=== PATIENT | male | born 1940 | race Caucasian/White ===

== ENCOUNTER 2018-01-30 14:24 | Emergency (ER) | payer OTHER ==
[2018-01-30] MEDS ORDERED: TETANUS & DIPHTHERIA TOX,ADULT 0.5 ML VIAL ONE (16:36)
--- NOTE | 2018-01-30 16:39 | EDPHYS ---
Physician Documentation [facility] Name: Taz Silverio Age: 77 yrs Sex: Male : 1940 Arrival Date: 01/30/2018 Time: 14:28 Bed 13 Private MD: Rui Williamson F ED Physician Jalen Masters HPI: 01/31 03:01 This 77 yrs old Male presents to ER via Ambulatory with complaints of Fall pm1 Injury - 2 Days Ago, Skin Tear(s). 03:02 Details of fall: The patient fell from a height, bed. Onset: The symptoms/episode pm1 began/occurred 2 day(s) ago. Associated injuries: The patient sustained Abrasion/skin tear to right arm. Severity of symptoms: in the emergency department the symptoms have improved. The patient has not experienced similar symptoms in the past. patient had a dream about catching giraffes and rolled off the bed resulting in abrasions to his right arm. No headache, head injury or neck pain. Patient presenting to ER for tetanus shot. Historical: - Allergies: 01/30 15:06 No Known Drug Allergies; aj - Home Meds: 15:06 Advair Diskus 250-50 mcg/dose Inhl dsdv 1 puff 2 times per day [Active]; albuterol aj sulfate 1.25 mg/3 mL Inhl nebu 3 mL 3 times per day [Active]; alprazolam 0.5 mg Oral tab 1 tab twice a day [Active]; amlodipine 2.5 mg tab 1 tab once daily [Active]; aspirin 81 mg Oral TbEC 1 tab once daily [Active]; Azilect 1 mg Oral tab 1 tab once daily [Active]; baclofen 10 mg Oral tab 1 tab nightly [Active]; carbidopa-levodopa 25-100 mg Oral TbER 1 tab 4 times per day [Active]; citalopram 40 mg tab 1 tab once daily [Active]; montelukast 10 mg Oral tab 1 tab once daily [Active]; mirtazapine 30 mg Oral TbDL 1 tab once daily [Active]; omeprazole 20 mg Oral cpDR 1 cap once daily [Active]; pravastatin 40 mg Oral tab 1 tab once daily [Active]; Vitamin B-12 2,000 mcg Oral TbER [Active]; tamsulosin 0.4 mg Oral cp24 1 cap once daily [Active]; - PMHx: 15:06 Hypertension; aj - PSHx: 15:06 None; aj - Immunization history: Last tetanus immunization: unknown. - Social history:: Smoking status: Patient/guardian denies using tobacco. ROS: 01/31 03:02 Constitutional: Negative for fever, chills, and weight loss, Eyes: Negative for injury, pm1 pain, redness, and discharge, ENT: Negative for injury, pain, and discharge, Neck: Negative for injury, pain, and swelling, Cardiovascular: Negative for chest pain, palpitations, and edema, Respiratory: Negative for shortness of breath, cough, wheezing, and pleuritic chest pain, Abdomen/GI: Negative for abdominal pain, nausea, vomiting, diarrhea, and constipation, Back: Negative for injury and pain, MS/Extremity: Negative for injury and deformity. Neuro: Negative for headache, weakness, numbness, tingling, and seizure. Skin: Positive for skin tear right arm. Exam: 03:04 Constitutional: This is a well developed, well nourished patient who is awake, alert, pm1 and in no acute distress. Head/Face: Normocephalic, atraumatic. Neck: Trachea midline, no thyromegaly or masses palpated, and no cervical lymphadenopathy. Supple, full range of motion without nuchal rigidity, or vertebral point tenderness. No Meningismus. Chest/axilla: Normal chest wall appearance and motion. Nontender with no deformity. No lesions are appreciated. Cardiovascular: Regular rate and rhythm with a normal S1 and S2. No gallops, murmurs, or rubs. Normal PMI, no JVD. No pulse deficits. Respiratory: Lungs have equal breath sounds bilaterally, clear to auscultation and percussion. No rales, rhonchi or wheezes noted. No increased work of breathing, no retractions or nasal flaring. Abdomen/GI: Soft, non-tender, with normal bowel sounds. No distension or tympany. No guarding or rebound. No evidence of tenderness throughout. Back: No spinal tenderness. No costovertebral tenderness. Full range of motion. 03:04 Skin: injury, abrasion(s), small abrasion noted, of the right bicep and palmar aspect of right forearm, Skin tear, Wounds without any sign of discharge, surrounding erythema, or redness. Vital Signs: 01/30 15:04 BP 131 / 82; Pulse 62; Resp 18; Temp 98.2; Pulse Ox 98% on R/A; Weight 89.81 kg; Height aj 5 ft. 11 in. (180.34 cm); 15:04 Body Mass Index 27.62 (89.81 kg, 180.34 cm) aj [place] Coma Score: 15:04 Eye Response: spontaneous(4). Verbal Response: oriented(5). Motor Response: obeys aj commands(6). Total: 15. Trauma Score (Adult): 15:04 Eye Response: spontaneous(1); Verbal Response: oriented(1); Motor Response: obeys aj commands(2); Systolic BP: > 89 mm Hg(4); Respiratory Rate: 10 to 29 per min(4); [place] Score: 15; Trauma Score: 12 MDM: 16:27 Patient medically screened. pm1 16:37 Data reviewed: vital signs. Data interpreted: Pulse oximetry: on room air is 98 %. pm1 Interpretation: normal. Counseling: I had a detailed discussion with the patient and/or guardian regarding: the historical points, exam findings, and any diagnostic results supporting the discharge/admit diagnosis, to return to the emergency department if symptoms worsen or persist or if there are any questions or concerns that arise at home. 01/30 16:37 Order name: Wound Care; Complete Time: 16:50 ae1 01/30 16:37 Order name: Wound dressing; Complete Time: 16:50 ae1 Administered Medications: 16:49 Drug: Tetanus-Diphtheria Toxoid Adult 0.5 ml {Program Director: [employer]. Exp: ae1 04/30/2020. Lot #: [id number]. } Route: IM; Site: left deltoid; Disposition: 01/30/18 16:38 Discharged to Home. Impression: Abrasion of right upper arm, Abrasion of right forearm. - Condition is Stable. - Discharge Instructions: Abrasion, Skin Tear Care. - Medication Reconciliation Form, Thank You Letter, Antibiotic Education form. - Follow up: Emergency Department; When: As needed; Reason: Worsening of condition. Follow up: Rui Williamson MD; When: 5 - 6 days; Reason: Wound Recheck, Recheck today's complaints, Continuance of care, Re-evaluation by your physician. - Problem is new. - Symptoms have improved. Addendum: 02/01/2018 13:27 Co-signature as Attending Physician, Jalen Masters MD. g s Signatures: Marilynn Syed, RN RN aj Rut Saha RN RN aa5 Jorgito Martinez, DRILLING ENGINEERING MANAGER DRILLING ENGINEERING MANAGER pm1 Get Duque, RN RN ae1 Jalen Masters MD MD Corrections: (The following items were deleted from the chart) 01/30 16:39 16:38 01/30/2018 16:38 Discharged to Home. Impression: Abrasion of right upper arm; pm1 Abrasion of right forearm. Condition is Stable. Forms are Medication Reconciliation Form, Thank You Letter, Antibiotic Education, Prescription Opioid Use. Follow up: Emergency Department; When: As needed; Reason: Worsening of condition. Follow up: [facility]; When: As needed; Reason: Wound Recheck, Recheck today's complaints, Continuance of care, Re-evaluation by your physician. Problem is new. Symptoms have improved. pm1 16:57 16:39 01/30/2018 16:38 Discharged to Home. Impression: Abrasion of right upper arm; aa5 Abrasion of right forearm. Condition is Stable. Discharge Instructions: Abrasion, Skin Tear Care. Forms are Medication Reconciliation Form, Thank You Letter, Antibiotic Education, Prescription Opioid Use. Follow up: Emergency Department; When: As needed; Reason: Worsening of condition. Follow up: [facility]; When: 5 - 6 days; Reason: Wound Recheck, Recheck today's complaints, Continuance of care, Re-evaluation by your physician. Problem is new. Symptoms have improved. pm1
--- NOTE | 2018-01-30 16:39 | ER ---
Nurse's Notes [facility] Name: Taz Silverio Age: 77 yrs Sex: Male : 1940 Arrival Date: 01/30/2018 Time: 14:28 Bed 13 Private MD: Rui Williamson F Diagnosis: Abrasion of right upper arm;Abrasion of right forearm Presentation: 01/30 15:01 Presenting complaint: Patient states: Reports rolling out of bed 2 nights ago while aj having a bad dream. Patient reports he suffered minor lacerations to right posterior forearm and posterior upper arm. Care prior to arrival: None. Mechanism of Injury: Fall out of bed. Trauma event details: Injury occurred in the [facility], Injury occurred: at home. Injury occurred: January 28, 2018. 15:01 Acuity: SUKHJINDER 4 aj 15:01 Method Of Arrival: Ambulatory Trauma Activation: Not Applicable Physician: ED Physician; Name: ; Notified At: ; Arrived At: Physician: General Surgeon; Name: ; Notified At: ; Arrived At: Physician: Radiology; Name: ; Notified At: ; Arrived At: Physician: Respiratory; Name: ; Notified At: ; Arrived At: Physician: Lab; Name: ; Notified At: ; Arrived At: Historical: - Allergies: 15:06 No Known Drug Allergies; aj - Home Meds: 15:06 Advair Diskus 250-50 mcg/dose Inhl dsdv 1 puff 2 times per day [Active]; albuterol aj sulfate 1.25 mg/3 mL Inhl nebu 3 mL 3 times per day [Active]; alprazolam 0.5 mg Oral tab 1 tab twice a day [Active]; amlodipine 2.5 mg tab 1 tab once daily [Active]; aspirin 81 mg Oral TbEC 1 tab once daily [Active]; Azilect 1 mg Oral tab 1 tab once daily [Active]; baclofen 10 mg Oral tab 1 tab nightly [Active]; carbidopa-levodopa 25-100 mg Oral TbER 1 tab 4 times per day [Active]; citalopram 40 mg tab 1 tab once daily [Active]; montelukast 10 mg Oral tab 1 tab once daily [Active]; mirtazapine 30 mg Oral TbDL 1 tab once daily [Active]; omeprazole 20 mg Oral cpDR 1 cap once daily [Active]; pravastatin 40 mg Oral tab 1 tab once daily [Active]; Vitamin B-12 2,000 mcg Oral TbER [Active]; tamsulosin 0.4 mg Oral cp24 1 cap once daily [Active]; - PMHx: 15:06 Hypertension; aj - PSHx: 15:06 None; aj - Immunization history: Last tetanus immunization: unknown. - Social history:: Smoking status: Patient/guardian denies using tobacco. Primary Survey: 15:01 A: Airway: patent. Breathing/Chest: Respiratory pattern: regular, Respiratory effort: aj spontaneous, unlabored. Circulation: Skin color: pink. Disability Alert. Assessment: 15:01 General: Appears in no apparent distress. comfortable, Behavior is calm, cooperative, aj appropriate for age. Pain: Complains of pain in right tricep and palmar aspect of right forearm. Neuro: Level of Consciousness is awake, alert, obeys commands, Oriented to person, place, time, situation, Appropriate for age. Respiratory: Airway is patent Respiratory effort is even, unlabored, Respiratory pattern is regular, symmetrical. Derm: Skin is intact, is healthy with good turgor, Skin is pink, warm \T\ dry. normal. Injury Description: Abrasion sustained to right bicep and palmar aspect of right forearm. 16:56 Reassessment: Patient is alert, oriented x 3, equal unlabored respirations, skin aa5 warm/dry/pink. Vital Signs: 15:04 BP 131 / 82; Pulse 62; Resp 18; Temp 98.2; Pulse Ox 98% on R/A; Weight 89.81 kg; Height aj 5 ft. 11 in. (180.34 cm); 15:04 Body Mass Index 27.62 (89.81 kg, 180.34 cm) aj [place] Coma Score: 15:04 Eye Response: spontaneous(4). Verbal Response: oriented(5). Motor Response: obeys commands(6). Total: 15. Trauma Score (Adult): 15:04 Eye Response: spontaneous(1); Verbal Response: oriented(1); Motor Response: obeys commands(2); Systolic BP: > 89 mm Hg(4); Respiratory Rate: 10 to 29 per min(4); [place] Score: 15; Trauma Score: 12 ED Course: 14:28 Patient arrived in ED. as 14:29 Rui Williamson MD is Private Physician. as 15:03 Triage completed. aj 15:06 Arm band placed on left wrist. Patient placed in waiting room, Patient notified of wait aj time. 16:26 Jorgito Martinez NP is PHCP. pm1 16:26 Jalen Masters MD is Attending Physician. pm1 16:27 Get Duque, RN is Primary Nurse. ae1 16:37 uRi Williamson MD is Referral Physician. pm1 Administered Medications: 16:49 Drug: Tetanus-Diphtheria Toxoid Adult 0.5 ml {[employer] Operator: [employer]. Exp: ae1 04/30/2020. Lot #: [id number]. } Route: IM; Site: left deltoid; Outcome: 16:38 Discharge ordered by . pm1 16:56 Discharged to home ambulatory, with significant other. aa5 16:56 Condition: stable 16:56 Discharge instructions given to patient, significant other, Instructed on discharge instructions, follow up and referral plans. Demonstrated understanding of instructions, follow-up care. 16:57 Patient left the ED. aa5 Signatures: Marilynn Syed, RN RN Fawn Solis Audri, RN RN aa5 Jorgito Martinez, LORA HAND STRAIGHTENER pm1 Get Duque, RN RN ae1
[2018-01-30 17:01] VITALS: BP 131/82; TEMP 98.2; O2SAT 98
== END 2018-01-30 16:57 | disposition home or self-care (01) ==
LOC: ER 14:24
DX: S50.811A Abrasion of right forearm, initial encounter (principal); I10 Essential (primary) hypertension; W06.XXXA Fall from bed, initial encounter; Y93.9 Activity, unspecified; Y92.003 Bedroom of unspecified non-institutional (private) residence as the place of occurrence of the external cause; Z23 Encounter for immunization; Z79.82 Long term (current) use of aspirin
CPT/HCPCS: 90714; 99283

== ENCOUNTER 2018-06-04 10:09 | Emergency (ER) | payer OTHER ==
[2018-06-04 11:30] LABS: Absolute Lymphocytes (CBC) 0.8 K/uL (0.7-4.9); Absolute Monocytes 0.5 K/uL (0.1-1.3); Absolute Neutrophil 9.5 K/uL (1.8-8.0); Basophils % 0.7 % (0-1.3); Eosinophils % 0.2 % (0-4.4); Hematocrit 43.2 % (39.6-49.0); Lymphocytes % 7.5 % (15.3-44.8); MCH 31.6 pg (27.0-35.0); MCV 91.2 fL (80-100); MPV 9.1 fL (7.6-11.3); Monocytes % 4.7 % (3.3-12.3); RBC Red Blood Cell Count 4.73 M/uL (4.33-5.43)
[2018-06-04 11:46] LABS: Potassium 3.4 mmol/L (3.5-5.1)
[2018-06-04 11:56] LABS: Blood Morphology Comment NOT SEEN (NOT SEEN); Platelet Estimate ADEQ; Urine White Blood Cell Casts OK
[2018-06-04 12:15] LABS: Urine Blood NEGATIVE (NEG); Urine Glucose NEGATIVE (NEG); Urine Protein NEGATIVE (NEG); Urine Specific Gravity 1.015 (1.005-1.030); Urine pH 5.5 (5.0-7.0)
--- NOTE | 2018-06-04 12:44 | RAD REPORT ---
EXAM DESCRIPTION: CTAbdomen Pelvis W Contrast - 06/04/2018 12:31 pm CLINICAL HISTORY: Abdominal pain. iv only;Abd pain COMPARISON: No comparisons TECHNIQUE: Biphasic CT imaging of the abdomen and pelvis was performed with 100 ml non-ionic IV cont rast. All CT scans are performed using dose optimization technique as appropriate and may include automated exposure control or mA/KV adjustment according to patient size. FINDINGS: Mild linear subsegmental atelectasis is present in the right lung base. The liver demonstrates no focal mass or intrahepatic biliary dilatation. The spleen, pancreas, adrena l glands are within normal limits. The left kidney demonstrates no hydronephrosis. There is moderate right hydronephrosis and hydroureter seen. The bladder is quite distended and there is moderate prostatomegaly. The wall of the bladder is irregularly thickened. No bowel obstruction, free air, free fluid or abscess. Large amount of stool is present in the colon. The appendix is normal. Small fat containing umbilical hernia. No evidence of significant lymphadeno tina. Moderate lumbosacral degenerative changes. IMPRESSION: Marked bladder distention is present with moderate right hydroureter and hydronephrosis. A bladder outlet obstruction is possible with reflux present on the right. A clear etiology for the right-sided hydronephrosis is not seen, however, and followup cystoscopy may be of value to better vi sualize the right UVJ as well as the areas of irregular bladder wall thickening. Moderate fecal retention in the colon.
[2018-06-04] MEDS ORDERED: MAGNESIUM CITRATE 300 ML BOT ONE (13:37)
[2018-06-04] MEDS ORDERED: FLEET ENEMA ADULT PR ONE (15:17)
--- NOTE | 2018-06-04 15:17 | ER ---
Nurse's Notes [facility] Name: Taz Silverio Age: 77 yrs Sex: Male : 1940 Arrival Date: 06/04/2018 Time: 10:13 Bed 14 Private MD: Rui Williamson F Diagnosis: Constipation;Retention of urine;Enlarged prostate Presentation: 06/04 10:20 Presenting complaint: Patient states: constipation. Pt reports last BM was 5 days ago. aa5 Pt states "I took Dulcolax yesterday". Pt denies Nausea, denies vomiting. Reports lower abd pain. 10:20 Transition of care: patient was not received from another setting of care. Onset of aa5 symptoms was June 2018. Risk Assessment: Do you want to hurt yourself or someone else? Patient reports no desire to harm self or others. Initial Sepsis Screen: Does the patient meet any 2 criteria? No. Patient's initial sepsis screen is negative. Does the patient have a suspected source of infection? No. Patient's initial sepsis screen is negative. Care prior to arrival: None. 10:20 Method Of Arrival: Ambulatory aa5 10:20 Acuity: SUKHJINDER 3 aa5 Historical: - Allergies: 10:22 No Known Allergies; aa5 - PMHx: 10:22 Hypertension; Asthma; Parkinsons; aa5 - PSHx: 10:22 None; aa5 - Immunization history:: Adult Immunizations up to date, Pneumococcal vaccine is up to date, Flu vaccine is up to date. - Social history:: Smoking status: Patient/guardian denies using tobacco. - Ebola Screening: : No symptoms or risks identified at this time. Screenin:00 Abuse screen: Denies threats or abuse. Denies injuries from another. Nutritional jl7 screening: No deficits noted. Tuberculosis screening: No symptoms or risk factors identified. Fall Risk IV access (20 points). Total [place] Fall Scale indicates No Risk (0-24 pts). Assessment: 11:00 General: Appears in no apparent distress. uncomfortable, Behavior is calm, cooperative, jl7 appropriate for age. Pain: Complains of pain in abdomen. Neuro: Level of Consciousness is awake, alert, obeys commands, Oriented to person, place, time, situation. Cardiovascular: Patient's skin is warm and dry. Respiratory: Airway is patent Respiratory effort is even, unlabored, Respiratory pattern is regular, symmetrical. GI: Bowel sounds present X 4 quads. Pt's abdomen is mildly harder on the left side of abdomen. : Reports inability to void. EENT: No signs and/or symptoms were reported regarding the EENT system. Derm: Skin is pink, warm \\T\\ dry. Musculoskeletal: No signs and/or symptoms reported regarding the musculoskeletal system. 12:00 Reassessment: Patient appears in no apparent distress at this time. Patient and/or jl7 family updated on plan of care and expected duration. Pain level reassessed. Patient is alert, oriented x 3, equal unlabored respirations, skin warm/dry/pink. 13:30 Reassessment: Drained 2000 mL from straight cath. jl7 Vital Signs: 10:22 BP 120 / 80; Pulse 89; Resp 18 S; Temp 98.1(O); Pulse Ox 95% on R/A; Weight 87.54 kg aa5 (R); Height 5 ft. 11 in. (180.34 cm) (R); 11:33 BP 132 / 86; Pulse 69; Resp 16; Pulse Ox 95% on R/A; jl7 12:42 BP 111 / 70; Pulse 78; Resp 16 S; Pulse Ox 96% on R/A; jl7 14:00 BP 145 / 73; Pulse 70; Resp 16 S; Pulse Ox 94% on R/A; jl7 15:45 BP 140 / 75; Pulse 75; Resp 16 S; Pulse Ox 95% on R/A; jl7 10:22 Body Mass Index 26.92 (87.54 kg, 180.34 cm) aa5 ED Course: 10:13 Patient arrived in ED. mr 10:13 Rui Williamson MD is Private Physician. mr 10:20 Arm band placed on Patient placed in an exam room, on a stretcher. aa5 10:23 Charles Subramanian PA is PHCP. jr8 10:23 Cali Abbott MD is Attending Physician. jr8 10:26 Triage completed. aa5 10:34 Ebonie Hill RN is Primary Nurse. jl7 11:00 Patient has correct armband on for positive identification. Bed in low position. Call jl7 light in reach. Side rails up X 1. Pulse ox on. NIBP on. Warm blanket given. Pillow given. 11:00 Inserted saline lock: 20 gauge in right antecubital area, using aseptic technique. jl7 Blood collected. 12:[address] via wheelchair. jg6 12:31 CT Abd/Pelvis - W/Contrast In Process Unspecified. EDMS 13:28 Straight cath inserted, using sterile technique, 16 Fr. Returned oliver urine. Patient jl7 tolerated poorly. 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 Assisted DORON Anderson [facility] WELDER/INSTALLER Student with jl7 digital disimpaction. 15:16 Rui Williamson MD is Referral Physician. jr8 15:16 Stacey Lyn MD is Referral Physician. jr8 15:35 Assisted to bedside commode. jl7 15:48 IV discontinued, intact, bleeding controlled, No redness/swelling at site. Pressure jl7 dressing applied. Administered Medications: 13:35 Drug: Magnesium Citrate Liquid 300 ml Route: PO; jl7 15:28 Follow up: Response: No adverse reaction jl7 15:10 Drug: Fleet Enema 133 ml Route: AL; jl7 15:29 Follow up: Response: No adverse reaction jl7 Output: 13:00 Urine: 2000ml (Straight Cath); Total: 2000ml. jl7 Outcome: 15:16 Discharge ordered by MD. jr8 15:48 Discharged to home ambulatory, with family. jl7 15:48 Condition: stable 15:48 Discharge instructions given to patient, family, Instructed on discharge instructions, follow up and referral plans. medication usage, Demonstrated understanding of instructions, follow-up care, medications, Prescriptions given X 2. 15:55 Patient left the ED. jl7 Signatures: Dispatcher [employer] EDNY Jared Nemo SahaRut, RN RN aa5 Charles Subramanian PA PA jr8 Ebonie Hill RN RN jl7 Elina Blount jg6 Corrections: (The following items were deleted from the chart) 15:33 14:45 Served as a milling supervisor during rectal exam. jl7 jl7
--- NOTE | 2018-06-04 15:17 | EDPHYS ---
Physician Documentation [facility] Name: Taz Silverio Age: 77 yrs Sex: Male : 1940 Arrival Date: 06/04/2018 Time: 10:13 Bed 14 Private MD: Rui Williamson F ED Physician Cali Abbott HPI: 06/04 11:27 This 77 yrs old Male presents to ER via Ambulatory with complaints of jr8 Constipation. 11:27 The patient presents with abdominal pain in the lower abdomen. Onset: The jr8 symptoms/episode began/occurred gradually, 1 week(s) ago. The symptoms do not radiate. Associated signs and symptoms: Pertinent positives: constipation. The symptoms are described as crampy, dull. Modifying factors: The symptoms are alleviated by nothing, the symptoms are aggravated by nothing. Severity of pain: At its worst the pain was mild in the emergency department the pain is unchanged. The patient has not experienced similar symptoms in the past. The patient has not recently seen a physician. constipated for past week. Has tried OTC medication without relief . Historical: - Allergies: 10:22 No Known Allergies; aa5 - PMHx: 10:22 Hypertension; Asthma; Parkinsons; aa5 - PSHx: 10:22 None; aa5 - Immunization history:: Adult Immunizations up to date, Pneumococcal vaccine is up to date, Flu vaccine is up to date. - Social history:: Smoking status: Patient/guardian denies using tobacco. - Ebola Screening: : No symptoms or risks identified at this time. ROS: 11:27 Eyes: Negative for injury, pain, redness, and discharge, ENT: Negative for injury, jr8 pain, and discharge, Neck: Negative for injury, pain, and swelling, Cardiovascular: Negative for chest pain, palpitations, and edema, Respiratory: Negative for shortness of breath, cough, wheezing, and pleuritic chest pain, Back: Negative for injury and pain, MS/Extremity: Negative for injury and deformity, Skin: Negative for injury, rash, and discoloration, Neuro: Negative for headache, weakness, numbness, tingling, and seizure. 11:27 Abdomen/GI: Positive for abdominal pain, constipation, abdominal cramps, Negative for nausea, vomiting, and diarrhea, abdominal distension, anorexia, dysphagia, hematemesis, black/tarry stool, rectal pain, rectal bleeding, bowel incontinence, flatulence. Exam: 11:28 Eyes: Pupils equal round and reactive to light, extra-ocular motions intact. Lids and jr8 lashes normal. Conjunctiva and sclera are non-icteric and not injected. Cornea within normal limits. Periorbital areas with no swelling, redness, or edema. ENT: Nares patent. No nasal discharge, no septal abnormalities noted. Tympanic membranes are normal and external auditory canals are clear. Oropharynx with no redness, swelling, or masses, exudates, or evidence of obstruction, uvula midline. Mucous membranes moist. Neck: Trachea midline, no thyromegaly or masses palpated, and no cervical lymphadenopathy. Supple, full range of motion without nuchal rigidity, or vertebral point tenderness. No Meningismus. Cardiovascular: Regular rate and rhythm with a normal S1 and S2. No gallops, murmurs, or rubs. Normal PMI, no JVD. No pulse deficits. Respiratory: Lungs have equal breath sounds bilaterally, clear to auscultation and percussion. No rales, rhonchi or wheezes noted. No increased work of breathing, no retractions or nasal flaring. Back: No spinal tenderness. No costovertebral tenderness. Full range of motion. Skin: Warm, dry with normal turgor. Normal color with no rashes, no lesions, and no evidence of cellulitis. MS/ Extremity: Pulses equal, no cyanosis. Neurovascular intact. Full, normal range of motion. Neuro: Awake and alert, GCS 15, oriented to person, place, time, and situation. Cranial nerves II-XII grossly intact. Motor strength 5/5 in all extremities. Sensory grossly intact. Cerebellar exam normal. Normal gait. 11:28 Abdomen/GI: Inspection: abdomen appears normal, Bowel sounds: active, all quadrants, Palpation: mild abdominal tenderness, in the right lower quadrant and left lower quadrant, mass, is not appreciated, rebound tenderness, is not appreciated, no appreciated organomegaly, firm feeling in lower abdomen , Indicators: McBurney's point is not tender, Miguel's sign is negative, Rovsing's sign is negative, Liver: no appreciated palpable abnormalities, tenderness, is not appreciated. Vital Signs: 10:22 BP 120 / 80; Pulse 89; Resp 18 S; Temp 98.1(O); Pulse Ox 95% on R/A; Weight 87.54 kg aa5 (R); Height 5 ft. 11 in. (180.34 cm) (R); 11:33 BP 132 / 86; Pulse 69; Resp 16; Pulse Ox 95% on R/A; jl7 12:42 BP 111 / 70; Pulse 78; Resp 16 S; Pulse Ox 96% on R/A; jl7 14:00 BP 145 / 73; Pulse 70; Resp 16 S; Pulse Ox 94% on R/A; jl7 15:45 BP 140 / 75; Pulse 75; Resp 16 S; Pulse Ox 95% on R/A; jl7 10:22 Body Mass Index 26.92 (87.54 kg, 180.34 cm) aa5 Procedures: 15:12 Fecal disimpaction: digital disimpaction was performed, with a moderate amount of stool jr8 expressed. The patient tolerated the intervention well. MDM: 10:23 Patient medically screened. jr8 15:12 Data reviewed: vital signs, nurses notes, lab test result(s), radiologic studies, CT jr8 scan, and as a result, I will discharge patient. Data interpreted: Pulse oximetry: on room air is 94 %. Interpretation: normal. Counseling: I had a detailed discussion with the patient and/or guardian regarding: the historical points, exam findings, and any diagnostic results supporting the discharge/admit diagnosis, lab results, radiology results, the need for outpatient follow up, a family practitioner, to return to the emergency department if symptoms worsen or persist or if there are any questions or concerns that arise at home. 15:12 ED course: Evacuated as much stool as possible. Enema given and will be sent home on jr8 medication to help with the constipation. Will need to f/u in a few days. If worse or cannot go to come back or f/u with GI. Straight cathed 2000 ml total of urine out to decompress him. Likely prostomegaly that needs to be further evaluated by urology at this point. Patient still able to urinate so does not require Mcgill yet . 06/04 10:46 Order name: Basic Metabolic Panel; Complete Time: 11:47 jr8 06/04 10:46 Order name: CBC with Diff; Complete Time: 12:12 jr8 06/04 11:20 Order name: Urine Dipstick--Ancillary (enter results); Complete Time: 12:18 eb 06/04 11:48 Order name: CT Abd/Pelvis - W/Contrast; Complete Time: 12:55 [facility] 06/04 11:56 Order name: CBC Smear Scan; Complete Time: 12:12 [facility] 06/04 10:44 Order name: Urine Dipstick-Ancillary (obtain specimen); Complete Time: 11:18 [facility] 06/04 10:46 Order name: IV Saline Lock; Complete Time: 11:18 [facility] 06/04 10:46 Order name: Labs collected and sent; Complete Time: :18 [facility] 06/04 13:02 Order name: Straight Cath - Urine; Complete Time: 13:28 jr8 Administered Medications: 13:35 Drug: Magnesium Citrate Liquid 300 ml Route: PO; jl7 15:28 Follow up: Response: No adverse reaction jl7 15:10 Drug: Fleet Enema 133 ml Route: MT; jl7 15:29 Follow up: Response: No adverse reaction jl7 Disposition: 17:52 Co-signature as Attending Physician, Cali Abbott MD. rn Disposition: 06/04/18 15:16 Discharged to Home. Impression: Constipation, Retention of urine, Enlarged prostate. - Condition is Stable. - Discharge Instructions: Constipation, Adult. - Prescriptions for Lactulose 10 gram/15 mL Oral Solution - take 30 milliliters by ORAL route 2 times per day for 2 days; 140 milliliter. Miralax 17 gram/dose Oral - take 1 packet by ORAL route once daily dilute powder in 8 ounces of water or juice; 1 box. - Medication Reconciliation Form, Thank You Letter, Antibiotic Education, Prescription Opioid Use form. - Follow up: Rui Williamson MD; When: 2 - 3 days; Reason: Recheck today's complaints, Continuance of care, Re-evaluation by your physician. Follow up: Stacey Lyn MD; When: 2 - 3 days; Reason: Recheck today's complaints, Continuance of care, Re-evaluation by your physician. - Problem is new. - Symptoms have improved. Signatures: Dispatcher [employer] EDID Cali Abbott MD MD rn Calderon, Audri RN RN aa5 Charles Subramanian PA PA jr8 Ebonie Hill RN RN jl7 Corrections: (The following items were deleted from the chart) 10:58 10:34 Abdomen 1 View (KUB)+RAD.RAD.BRZ ordered. EDMS EDMS 15:55 15:16 06/04/2018 15:16 Discharged to Home. Impression: Constipation; Retention of jl7 urine; Enlarged prostate. Condition is Stable. Forms are Medication Reconciliation Form, Thank You Letter, Antibiotic Education, Prescription Opioid Use. Follow up: Rui Williamson; When: 2 - 3 days; Reason: Recheck today's complaints, Continuance of care, Re-evaluation by your physician. Follow up: Stacey Lyn; When: 2 - 3 days; Reason: Recheck today's complaints, Continuance of care, Re-evaluation by your physician. Problem is new. Symptoms have improved. jr8
[2018-06-04 16:00] VITALS: TEMP 98.1
[2018-06-04 16:05] VITALS: BP 140/75; O2SAT 95
== END 2018-06-04 15:55 | disposition home or self-care (01) ==
LOC: ER 10:09
DX: N40.0 Benign prostatic hyperplasia without lower urinary tract symptoms (principal); R33.9 Retention of urine, unspecified
CPT/HCPCS: 36415; 51702; 74177; 80048; 81003; 85025; 99285; Q9967

== ENCOUNTER 2018-06-14 21:44 | Emergency (ER) | payer OTHER ==
[2018-06-14] MEDS ORDERED: DERMABOND SKIN ADHESIVE TOP ONE ×2 (22:45→23:17)
--- NOTE | 2018-06-14 23:25 | EDPHYS ---
Physician Documentation [facility] Name: Taz Silverio Age: 77 yrs Sex: Male : 1940 Arrival Date: 06/14/2018 Time: 21:45 Bed 15 Private MD: Rui Williamson F ED Physician Jalen Masters HPI: 06/14 23:00 This 77 yrs old Male presents to ER via Ambulatory with complaints of Fall pm1 Injury. 23:00 Details of fall: The patient fell from an upright position, while walking. Onset: The pm1 symptoms/episode began/occurred just prior to arrival. Associated injuries: The patient sustained dorsal aspect of right forearm, skin tear. Patient was walking next to his and tripped. Patient with history of Parkinson's. Patient believes that he cut his right arm on his walker. Historical: - Allergies: 22:10 No Known Allergies; cc3 - Home Meds: 22:10 Advair Diskus 250-50 mcg/dose Inhl dsdv 1 puff 2 times per day [Active]; albuterol cc3 sulfate 1.25 mg/3 mL Inhl nebu 3 mL 3 times per day [Active]; alprazolam 0.5 mg Oral tab 1 tab twice a day [Active]; amlodipine 2.5 mg tab 1 tab once daily [Active]; aspirin 81 mg Oral TbEC 1 tab once daily [Active]; Azilect 1 mg Oral tab 1 tab once daily [Active]; baclofen 10 mg Oral tab 1 tab nightly [Active]; carbidopa-levodopa 25-100 mg Oral TbER 1 tab 4 times per day [Active]; citalopram 40 mg tab 1 tab once daily [Active]; mirtazapine 30 mg Oral TbDL 1 tab once daily [Active]; montelukast 10 mg Oral tab 1 tab once daily [Active]; omeprazole 20 mg Oral cpDR 1 cap once daily [Active]; pravastatin 40 mg Oral tab 1 tab once daily [Active]; tamsulosin 0.4 mg Oral cp24 1 cap once daily [Active]; Vitamin B-12 2,000 mcg Oral TbER [Active]; - PMHx: 22:10 Asthma; Hypertension; Parkinsons; cc3 - Immunization history:: Adult Immunizations up to date. - Social history:: Smoking status: Patient/guardian denies using tobacco, never smoked. - Ebola Screening: : No symptoms or risks identified at this time. ROS: 23:00 Constitutional: Negative for fever, chills, and weight loss, Eyes: Negative for injury, pm1 pain, redness, and discharge, ENT: Negative for injury, pain, and discharge, Neck: Negative for injury, pain, and swelling, Cardiovascular: Negative for chest pain, palpitations, and edema, Respiratory: Negative for shortness of breath, cough, wheezing, and pleuritic chest pain, Abdomen/GI: Negative for abdominal pain, nausea, vomiting, diarrhea, and constipation, Back: Negative for injury and pain, : Negative for injury, bleeding, discharge, and swelling, MS/Extremity: Negative for injury and deformity. 23:00 Neuro: Negative for headache, weakness, numbness, tingling, and seizure. 23:00 Skin: Positive for laceration(s), of the dorsal aspect of right forearm. Exam: 23:00 Constitutional: This is a well developed, well nourished patient who is awake, alert, pm1 and in no acute distress. Head/Face: Normocephalic, atraumatic. Eyes: Pupils equal round and reactive to light, extra-ocular motions intact. Lids and lashes normal. Conjunctiva and sclera are non-icteric and not injected. Cornea within normal limits. Periorbital areas with no swelling, redness, or edema. ENT: Nares patent. No nasal discharge, no septal abnormalities noted. Tympanic membranes are normal and external auditory canals are clear. Oropharynx with no redness, swelling, or masses, exudates, or evidence of obstruction, uvula midline. Mucous membranes moist. Neck: Trachea midline, no thyromegaly or masses palpated, and no cervical lymphadenopathy. Supple, full range of motion without nuchal rigidity, or vertebral point tenderness. No Meningismus. Chest/axilla: Normal chest wall appearance and motion. Nontender with no deformity. No lesions are appreciated. Cardiovascular: Regular rate and rhythm with a normal S1 and S2. No gallops, murmurs, or rubs. Normal PMI, no JVD. No pulse deficits. Respiratory: Lungs have equal breath sounds bilaterally, clear to auscultation and percussion. No rales, rhonchi or wheezes noted. No increased work of breathing, no retractions or nasal flaring. Abdomen/GI: Soft, non-tender, with normal bowel sounds. No distension or tympany. No guarding or rebound. No evidence of tenderness throughout. Back: No spinal tenderness. No costovertebral tenderness. Full range of motion. 23:00 Skin: Appearance: normal except for affected area, injury, skin tear to right forearm. 23:00 Neuro: Orientation: is normal, Mentation: is normal, Motor: moves all fours, Sensation: is normal, no obvious gross deficits. Vital Signs: 22:10 BP 133 / 70; Pulse 45; Resp 17 S; Temp 98.9(O); Pulse Ox 95% on R/A; Weight 78.47 kg; cc3 Height 5 ft. 11 in. (180.34 cm); 23:20 BP 134 / 72; Pulse 52; Resp 17 S; Pulse Ox 96% on R/A; cc3 22:10 Body Mass Index 24.13 (78.47 kg, 180.34 cm) cc3 Laceration: 23:22 Wound Repair of 7cm ( 2.8in ) subcutaneous laceration to dorsal aspect of right pm1 forearm. Irregularly shaped.. skin tear. Distal neuro/vascular/tendon intact. Wound prep: Extensive cleansing with hibiclenz by me, Wound irrigation with saline by me, Wound explored, Copious irrigation. Skin closed with 1-0 Adhesive skin closure using Dermabond. Dressed with 4x4's. Patient tolerated well. MDM: 22:15 Patient medically screened. pm1 23:22 Data reviewed: vital signs. Data interpreted: Pulse oximetry: on room air is 95 %. pm1 Interpretation: normal. Counseling: I had a detailed discussion with the patient and/or guardian regarding: the historical points, exam findings, and any diagnostic results supporting the discharge/admit diagnosis, the need for outpatient follow up, to return to the emergency department if symptoms worsen or persist or if there are any questions or concerns that arise at home. 06/14 22:20 Order name: Dermabond; Complete Time: 00:04 pm1 06/14 22:39 Order name: Wound Care; Complete Time: 00:04 pm1 Administered Medications: No medications were administered Disposition: 06/15 23:40 Co-signature as Attending Physician, Jalen Masters MD. Disposition: 06/14/18 23:25 Discharged to Home. Impression: Laceration without foreign body of right forearm - skin tear. - Condition is Stable. - Discharge Instructions: Tissue Adhesive Wound Care. - Prescriptions for Keflex 500 mg Oral Capsule - take 1 capsule by ORAL route every 12 hours for 10 days; 20 capsule. - Medication Reconciliation Form, Thank You Letter, Antibiotic Education form. - Follow up: Emergency Department; When: As needed; Reason: Worsening of condition. Follow up: Private Physician; When: As needed; Reason: Recheck today's complaints, Continuance of care, Re-evaluation by your physician. - Problem is new. - Symptoms have improved. Signatures: Jorgito Martinez, [employer] pm1 Jalen Masters MD MD Ginna Braden cc3 Corrections: (The following items were deleted from the chart) 00:04 06/14 23:25 06/14/2018 23:25 Discharged to Home. Impression: Laceration without foreign cc3 body of right forearm - skin tear. Condition is Stable. Forms are Medication Reconciliation Form, Thank You Letter, Antibiotic Education, Prescription Opioid Use. Follow up: Emergency Department; When: As needed; Reason: Worsening of condition. Follow up: Private Physician; When: As needed; Reason: Recheck today's complaints, Continuance of care, Re-evaluation by your physician. Problem is new. Symptoms have improved. pm1
--- NOTE | 2018-06-14 23:25 | ER ---
Nurse's Notes [facility] Name: Taz Silverio Age: 77 yrs Sex: Male : 1940 Arrival Date: 06/14/2018 Time: 21:45 Bed 15 Private MD: Rui Williamson F Diagnosis: Laceration without foreign body of right forearm-skin tear Presentation: 06/14 22:10 Presenting complaint: Patient states: lacerated wound on the right forearm sustained cc3 from slipped in the kitchen then hit his right forearm on a hard object. Transition of care: patient was not received from another setting of care. Onset of symptoms was June 14, 2018. Risk Assessment: Do you want to hurt yourself or someone else? Patient reports no desire to harm self or others. Initial Sepsis Screen: Does the patient meet any 2 criteria? No. Patient's initial sepsis screen is negative. Initial Sepsis Screen: Does the patient have a suspected source of infection? No. Patient's initial sepsis screen is negative. Care prior to arrival: None. 22:10 Method Of Arrival: Ambulatory cc3 22:10 Acuity: SUKHJINDER 3 cc3 Triage Assessment: 22:10 General: Appears in no apparent distress. comfortable, Behavior is calm, cooperative, cc3 appropriate for age. Pain: Complains of pain in dorsal aspect of right forearm. EENT: No signs and/or symptoms were reported regarding the EENT system. Neuro: Level of Consciousness is awake, alert, obeys commands, Oriented to person, place, time, situation, Appropriate for age. Cardiovascular: Denies chest pain. Respiratory: Airway is patent Respiratory effort is even, unlabored, Respiratory pattern is regular, symmetrical. GI: Abdomen is round non-distended. : No signs and/or symptoms were reported regarding the genitourinary system. Derm: Wound noted dorsal aspect of right forearm Wound is skin tear. Musculoskeletal: Circulation, motion, and sensation intact. Range of motion: limited in lower extremities. Historical: - Allergies: 22:10 No Known Allergies; cc3 - Home Meds: 22:10 Advair Diskus 250-50 mcg/dose Inhl dsdv 1 puff 2 times per day [Active]; albuterol cc3 sulfate 1.25 mg/3 mL Inhl nebu 3 mL 3 times per day [Active]; alprazolam 0.5 mg Oral tab 1 tab twice a day [Active]; amlodipine 2.5 mg tab 1 tab once daily [Active]; aspirin 81 mg Oral TbEC 1 tab once daily [Active]; Azilect 1 mg Oral tab 1 tab once daily [Active]; baclofen 10 mg Oral tab 1 tab nightly [Active]; carbidopa-levodopa 25-100 mg Oral TbER 1 tab 4 times per day [Active]; citalopram 40 mg tab 1 tab once daily [Active]; mirtazapine 30 mg Oral TbDL 1 tab once daily [Active]; montelukast 10 mg Oral tab 1 tab once daily [Active]; omeprazole 20 mg Oral cpDR 1 cap once daily [Active]; pravastatin 40 mg Oral tab 1 tab once daily [Active]; tamsulosin 0.4 mg Oral cp24 1 cap once daily [Active]; Vitamin B-12 2,000 mcg Oral TbER [Active]; - PMHx: 22:10 Asthma; Hypertension; Parkinsons; cc3 - Immunization history:: Adult Immunizations up to date. - Social history:: Smoking status: Patient/guardian denies using tobacco, never smoked. - Ebola Screening: : No symptoms or risks identified at this time. Screenin:10 Abuse screen: Denies threats or abuse. Denies injuries from another. Nutritional cc3 screening: No deficits noted. Tuberculosis screening: No symptoms or risk factors identified. Fall Risk Ambulatory Aid- Crutches/Cane/Walker (15 pts). Gait- Weak (10 pts.). Mental Status- Oriented to own ability (0 pts). Assessment: 22:10 General: see triage assessment. cc3 23:50 Reassessment: Patient appears in no apparent distress at this time. Patient and/or cc3 family updated on plan of care and expected duration. Pain level reassessed. Patient is alert, oriented x 3, equal unlabored respirations, skin warm/dry/pink. Patient discharged home with prescription given; wound cleaning and dressing done. Patient left ER vitally stable by wheelchair with his . Vital Signs: 22:10 BP 133 / 70; Pulse 45; Resp 17 S; Temp 98.9(O); Pulse Ox 95% on R/A; Weight 78.47 kg; cc3 Height 5 ft. 11 in. (180.34 cm); 23:20 BP 134 / 72; Pulse 52; Resp 17 S; Pulse Ox 96% on R/A; cc3 22:10 Body Mass Index 24.13 (78.47 kg, 180.34 cm) cc3 ED Course: 21:45 Patient arrived in ED. ds1 21:46 Rui Williamson MD is Private Physician. ds1 22:04 Jorgito Martinez NP is PHCP. pm1 22:04 Jalen Masters MD is Attending Physician. pm1 22:10 Patient has correct armband on for positive identification. Bed in low position. Call cc3 light in reach. Side rails up X2. Pulse ox on. NIBP on. 22:10 Arm band placed on left wrist. cc3 22:35 Ginna Braden is Primary Nurse. cc3 23:02 Triage completed. cc3 23:50 wound closure with skin adhesive dermabond. Patient did not have IV access during this cc3 emergency room visit. Dressings: 4X4s X 2; dorsal aspect of right forearm. Administered Medications: No medications were administered Outcome: 23:25 Discharge ordered by . pm1 23:50 Discharged to home via wheelchair, with family. cc3 23:50 Condition: stable 23:50 Discharge instructions given to patient, family, Instructed on discharge instructions, follow up and referral plans. medication usage, Demonstrated understanding of instructions, follow-up care, medications, Prescriptions given X 1. 06/15 00:04 Patient left the ED. cc3 Signatures: Kirsty Vides ds1 Jorgito Martinez NP [employer] pm1 Ginna Braden cc3
[2018-06-16 14:13] VITALS: BP 133/70; TEMP 98.9; O2SAT 95
== END 2018-06-15 00:04 | disposition home or self-care (01) ==
LOC: ER 21:44
PROC: 0JQG0ZZ Repair Right Lower Arm Subcutaneous Tissue and Fascia, Open Approach (ICD-10-PCS; principal; 2018-06-15)
DX: S51.811A Laceration without foreign body of right forearm, initial encounter (principal); W18.00XA Striking against unspecified object with subsequent fall, initial encounter; Y93.01 Activity, walking, marching and hiking; Y92.9 Unspecified place or not applicable; Z79.82 Long term (current) use of aspirin; I10 Essential (primary) hypertension; G20 Parkinson's disease
CPT/HCPCS: 99283

== ENCOUNTER 2018-07-31 18:24 | Inpatient (IN) | payer OTHER ==
--- NOTE | 2018-07-31 19:19 | RAD REPORT ---
EXAM DESCRIPTION: RAD - Chest Single View - 07/31/2018 7:07 pm CLINICAL HISTORY: FEVER Chest pain. COMPARISON: Chest Pa And Lat (2 Views) dated 07/28/2018; Chest Single View dated 10/03/2017; CHEST SIN GLE VIEW dated 10/30/2014; CHEST SINGLE VIEW dated 10/29/2014 FINDINGS: Portable technique limits examination quality. The lungs are grossly clear. The heart is normal in size. No displaced fractures. IMPRESSION: No acute intrathoracic process suspected.
[2018-07-31 19:31] LABS: Absolute Lymphocytes (CBC) 0.4 K/uL (0.7-4.9); Absolute Monocytes 0.7 K/uL (0.1-1.3); Absolute Neutrophil 11.4 K/uL (1.8-8.0); Basophils % 0.6 % (0-1.3); Hematocrit 37.7 % (39.6-49.0); Lymphocytes % 3.5 % (15.3-44.8); MCH 31.8 pg (27.0-35.0); MCV 90.5 fL (80-100); MPV 8.5 fL (7.6-11.3); Monocytes % 5.5 % (3.3-12.3); RBC Red Blood Cell Count 4.16 M/uL (4.33-5.43)
[2018-07-31 19:37] LABS: Protime INR 1.22
[2018-07-31] MEDS ORDERED: NA CHLORIDE 0.9% 2,000 ML ONE (19:58)
[2018-07-31 20:01] LABS: Platelet Estimate ADEQ; Urine White Blood Cell Casts OK
[2018-07-31 20:02] LABS: Blood Morphology Comment NOT SEEN (NOT SEEN)
[2018-07-31 20:07] LABS: ALT/SGPT 21 U/L (12-78); AST/SGOT 12 U/L (15-37); Albumin 3.2 g/dL (3.4-5.0); Alkaline Phosphatase 101 U/L (45-117); BUN Blood Urea Nitrogen 13 mg/dL (7-18); Bicarbonate 25 mmol/L (21-32); Bilirubin Direct 0.3 mg/dL (0-0.2); CKMB Creatine Kinase MB < 1.0 ng/mL (0.3-3.6); Creatine Phosphokinase 58 U/L (39-308); Glucose Level 108 mg/dL (74-106); Lipase 54 U/L (73-393); Protein, Total 6.8 g/dL (6.4-8.2); Sodium Level 140 mmol/L (136-145); Troponin (Emerg Dept Use Only) 0.03 ng/mL (0.0-0.045)
--- NOTE | 2018-07-31 20:20 | ER ---
Nurse's Notes [facility] Name: Taz Silverio Age: 77 yrs Sex: Male : 1940 Arrival Date: 07/31/2018 Time: 18:30 Bed 16 Private MD: Diagnosis: Fever, unspecified;Urinary tract infection, site not specified Presentation: 07/31 18:47 Presenting complaint: states: [place] he [place] shaking. When aj1 they got home she checked his temperature and it was 103. 30 minutes later when she checked it his temperature was 104, so she called 911. Patient was given 1Gm Tylenol by EMS personnel. Patient's states that they saw Dr. Gutierrez 2 days ago and he ordered a CXR that they have done in this facility and they saw Dr. Lyn yesterday who changed his catheter. Patient's states that he was diagnosed with a UTI 3 weeks ago, but she doesn't remember him being prescribed antibiotics. Transition of care: patient was not received from another setting of care. Onset of symptoms was July 31, 2018. Risk Assessment: Do you want to hurt yourself or someone else? Patient reports no desire to harm self or others. Initial Sepsis Screen: Does the patient meet any 2 criteria? No. Patient's initial sepsis screen is negative. Does the patient have a suspected source of infection? Yes: Dysuria/Frequency/Urgency/UTI. Care prior to arrival: None. 18:47 Method Of Arrival: EMS: [facility] aj1 18:47 Acuity: SUKHJINDER 3 aj1 Triage Assessment: 18:57 General: Appears in no apparent distress. comfortable, Behavior is calm, cooperative, aj1 appropriate for age. Pain: Denies pain. EENT: No signs and/or symptoms were reported regarding the EENT system. Neuro: Level of Consciousness is awake, alert, obeys commands. Cardiovascular: Patient's skin is warm and dry. Respiratory: Airway is patent Respiratory effort is even, unlabored, Respiratory pattern is regular, symmetrical. GI: No signs and/or symptoms were reported involving the gastrointestinal system. : Mcgill in place. Derm: No signs and/or symptoms reported regarding the dermatologic system. Skin is pink, warm \T\ dry. normal. Musculoskeletal: No signs and/or symptoms reported regarding the musculoskeletal system. Circulation, motion, and sensation intact. Historical: - Allergies: 18:57 No Known Allergies; aj1 - Home Meds: 18:57 fludrocortisone 0.1 mg oral tab 1 tab once daily [Active]; tamsulosin 0.4 mg Oral cp24 aj1 1 cap once daily [Active]; pravastatin 40 mg Oral tab 1 tab once daily [Active]; Advair Diskus 250-50 mcg/dose Inhl dsdv 1 puff 2 times per day [Active]; montelukast 10 mg Oral tab 1 tab once daily [Active]; albuterol sulfate 1.25 mg/3 mL Inhl nebu 3 mL 3 times per day [Active]; omeprazole 20 mg Oral cpDR 1 cap once daily [Active]; citalopram 40 mg tab 1 tab once daily [Active]; mirtazapine 30 mg Oral TbDL 1 tab once daily [Active]; alprazolam 0.5 mg Oral tab 1 tab twice a day [Active]; Azilect 1 mg Oral tab 1 tab once daily [Active]; carbidopa-levodopa 25-100 mg Oral TbER 1 tab 4 times per day [Active]; aspirin 81 mg Oral TbEC 1 tab once daily [Active]; Vitamin B-12 2,000 mcg Oral TbER [Active]; - PMHx: 18:57 Asthma; Hypertension; Parkinsons; Hyperlipidemia; aj1 - Immunization history:: Pneumococcal vaccine is up to date, Flu vaccine is up to date. - Social history:: Smoking status: Patient/guardian denies using tobacco. - Ebola Screening: : Patient denies travel to an Ebola-affected area in the 21 days before illness onset. Screenin:00 Abuse screen: Denies threats or abuse. Nutritional screening: No deficits noted. jb4 Tuberculosis screening: No symptoms or risk factors identified. Fall Risk None identified. Assessment: 19:05 General: Appears in no apparent distress. comfortable, Behavior is calm, cooperative, jb4 appropriate for age. Pain: Denies pain. Neuro: Level of Consciousness is awake, alert, obeys commands, Oriented to person, place, time, situation. Cardiovascular: Patient's skin is warm and dry. Rhythm is sinus rhythm. Respiratory: Airway is patent Respiratory effort is even, unlabored, Respiratory pattern is regular, symmetrical, Breath sounds are clear bilaterally. GI: No signs and/or symptoms were reported involving the gastrointestinal system. : Mcgill in place. EENT: No signs and/or symptoms were reported regarding the EENT system. Derm: Skin is intact, Skin is pink, warm \T\ dry. Musculoskeletal: Circulation, motion, and sensation intact. Weakness noted in the legs. 20:00 Reassessment: Patient appears in no apparent distress at this time. Patient and/or jb4 family updated on plan of care and expected duration. Pain level reassessed. Patient is alert, oriented x 3, equal unlabored respirations, skin warm/dry/pink. 21:00 Reassessment: Patient appears in no apparent distress at this time. Patient and/or jb4 family updated on plan of care and expected duration. Pain level reassessed. Patient is alert, oriented x 3, equal unlabored respirations, skin warm/dry/pink. 21:54 Reassessment: Patient appears in no apparent distress at this time. Patient and/or jb4 family updated on plan of care and expected duration. Pain level reassessed. Patient is alert, oriented x 3, equal unlabored respirations, skin warm/dry/pink. 22:30 Reassessment: Patient appears in no apparent distress at this time. Patient and/or jb4 family updated on plan of care and expected duration. Pain level reassessed. Patient is alert, oriented x 3, equal unlabored respirations, skin warm/dry/pink. Vital Signs: 18:57 BP 161 / 84; Pulse 80; Resp 18; Temp 99.2(O); Pulse Ox 93% on R/A; Weight 79.38 kg (R); aj1 Height 5 ft. 10 in. (177.80 cm) (R); Pain 0/10; 19:51 BP 143 / 75; Pulse 72; Resp 16; Pulse Ox 95% on R/A; mt 20:58 BP 139 / 79; Pulse 59; Resp 16; Temp 98.1(O); Pulse Ox 95% on R/A; jb4 21:54 BP 134 / 70; Pulse 64; Resp 16; Pulse Ox 96% on R/A; jb4 18:57 Body Mass Index 25.11 (79.38 kg, 177.80 cm) aj1 ED Course: 18:30 Patient arrived in ED. em1 18:40 Sera Mack FNP-C [facility] snw 18:40 Duc Nuñez MD is Attending Physician. snw 18:53 Triage completed. aj1 18:57 Arm band placed on Patient placed in an exam room. aj1 19:00 Patient has correct armband on for positive identification. Bed in low position. Call jb4 light in reach. Side rails up X 1. Pulse ox on. NIBP on. 19:20 Romaine Irving, DORON is Primary Nurse. jb4 20:19 Rui Williamson MD is Hospitalizing Provider. snw 20:47 Oral contrast reported to be complete. vm2 22:[address] via stretcher. vm2 22:20 CT completed. Patient tolerated procedure well. Patient moved back from CT. vm2 22:30 No provider procedures requiring assistance completed. Patient admitted, IV remains in jb4 place. Administered Medications: 19:30 CANCELLED (Physician Discretion; Pt recieved 1g of tylenol from EMS prior to arrival): jb4 Tylenol Suppository 650 mg MT once 19:40 Drug: NS 0.9% (30 ml/kg) 30 ml/kg Route: IV; Rate: bolus; Site: right forearm; jb4 22:55 Follow up: Response: No adverse reaction; IV Status: Infusion continued upon admission jb4 20:36 Drug: LevaQUIN 500 mg Volume: 100 ml; Route: IVPB; Infused Over: 60 mins; Site: right jb4 forearm; 21:34 Follow up: Response: No adverse reaction; IV Status: Completed infusion jb4 20:36 Drug: Potassium Chloride 20 mEq Route: IV; Rate: calculated rate; Site: right forearm; jb4 22:54 Follow up: Response: No adverse reaction; IV Status: Infusion continued upon admission jb4 Outcome: 20:19 Decision to Hospitalize by Provider. snw 22:45 Admitted to Med/surg accompanied by tech, via stretcher, room 213, with chart, Report jb4 called to Kiara 22:45 Condition: stable 22:45 Discharge instructions given to patient, family, Instructed on the need for admit, Demonstrated understanding of instructions. 22:55 Patient left the ED. jb4 Signatures: Luz Perry RN RN aj1 Sera Mack FNP-C PHILOSOPHY AND RELIGION INSTRUCTOR-CsnMick Michelle em1 Romaine Irving RN RN jb4 Sheila Adams 2 Gala Zaragoza [place]
--- NOTE | 2018-07-31 20:20 | EDPHYS ---
Physician Documentation [facility] Name: Taz Silverio Age: 77 yrs Sex: Male : 1940 Arrival Date: 07/31/2018 Time: 18:30 Bed 16 Private MD: ED Physician Duc Nuñez HPI: 07/31 19:15 This 77 yrs old Male presents to ER via EMS with complaints of fever. snw 19:15 The patient reports fever, that was measured at 103 degrees Fahrenheit. Onset: The snw symptoms/episode began/occurred suddenly. Modifying factors: hx of Parkinson's and frequent urinary complaints. Associated signs and symptoms: Pertinent positives: chills, decreased appetite. Severity of symptoms: At their worst the symptoms were moderate severe. The patient has experienced a previous episode. The patient has not recently seen a physician, the patient's primary care provider is Dr. Dr. Williamson, It is unknown whether or not the patient has recently seen a physician. Historical: - Allergies: 18:57 No Known Allergies; aj1 - Home Meds: 18:57 fludrocortisone 0.1 mg oral tab 1 tab once daily [Active]; tamsulosin 0.4 mg Oral cp24 aj1 1 cap once daily [Active]; pravastatin 40 mg Oral tab 1 tab once daily [Active]; Advair Diskus 250-50 mcg/dose Inhl dsdv 1 puff 2 times per day [Active]; montelukast 10 mg Oral tab 1 tab once daily [Active]; albuterol sulfate 1.25 mg/3 mL Inhl nebu 3 mL 3 times per day [Active]; omeprazole 20 mg Oral cpDR 1 cap once daily [Active]; citalopram 40 mg tab 1 tab once daily [Active]; mirtazapine 30 mg Oral TbDL 1 tab once daily [Active]; alprazolam 0.5 mg Oral tab 1 tab twice a day [Active]; Azilect 1 mg Oral tab 1 tab once daily [Active]; carbidopa-levodopa 25-100 mg Oral TbER 1 tab 4 times per day [Active]; aspirin 81 mg Oral TbEC 1 tab once daily [Active]; Vitamin B-12 2,000 mcg Oral TbER [Active]; - PMHx: 18:57 Asthma; Hypertension; Parkinsons; Hyperlipidemia; aj1 - Immunization history:: Pneumococcal vaccine is up to date, Flu vaccine is up to date. - Social history:: Smoking status: Patient/guardian denies using tobacco. - Ebola Screening: : Patient denies travel to an Ebola-affected area in the 21 days before illness onset. ROS: 19:17 Eyes: Negative for injury, pain, redness, and discharge, ENT: Negative for injury, snw pain, and discharge, Neck: Negative for injury, pain, and swelling, Cardiovascular: Negative for chest pain, palpitations, and edema, Respiratory: Negative for shortness of breath, cough, wheezing, and pleuritic chest pain, Abdomen/GI: Negative for abdominal pain, nausea, vomiting, diarrhea, and constipation, Back: Negative for injury and pain. 19:17 MS/Extremity: Negative for injury and deformity, Skin: Negative for injury, rash, and discoloration, Neuro: Negative for headache, weakness, numbness, tingling, and seizure. 19:17 Constitutional: Positive for body aches, chills, fatigue, fever, malaise. 19:17 : Positive for urinary symptoms. Exam: 19:17 Head/Face: Normocephalic, atraumatic. Eyes: Pupils equal round and reactive to light, snw extra-ocular motions intact. Lids and lashes normal. Conjunctiva and sclera are non-icteric and not injected. Cornea within normal limits. Periorbital areas with no swelling, redness, or edema. ENT: Nares patent. No nasal discharge, no septal abnormalities noted. Tympanic membranes are normal and external auditory canals are clear. Oropharynx with no redness, swelling, or masses, exudates, or evidence of obstruction, uvula midline. Mucous membranes moist. Neck: Trachea midline, no thyromegaly or masses palpated, and no cervical lymphadenopathy. Supple, full range of motion without nuchal rigidity, or vertebral point tenderness. No Meningismus. Chest/axilla: Normal chest wall appearance and motion. Nontender with no deformity. No lesions are appreciated. 19:17 Back: No spinal tenderness. No costovertebral tenderness. Full range of motion. Skin: Warm, dry with normal turgor. Normal color with no rashes, no lesions, and no evidence of cellulitis. MS/ Extremity: Pulses equal, no cyanosis. Neurovascular intact. Full, normal range of motion. 19:17 Constitutional: The patient appears awake, febrile, frail, uncomfortable, unkempt. 19:17 Cardiovascular: Rate: normal, Rhythm: regular, Heart sounds: normal. 19:17 Respiratory: the patient does not display signs of respiratory distress, Respirations: shallow respirations, Breath sounds: rhonchi, that are moderate, are heard in the left lower lobe and left posterior lower lobe. 19:17 Abdomen/GI: Inspection: abdomen appears normal, Bowel sounds: hyperactive, in all quadrants. 19:17 Neuro: Orientation: to person, place, Mentation: able to follow commands, slow to respond, Memory: no acute changes, seizure activity, is not displayed by the patient. Vital Signs: 18:57 BP 161 / 84; Pulse 80; Resp 18; Temp 99.2(O); Pulse Ox 93% on R/A; Weight 79.38 kg (R); aj1 Height 5 ft. 10 in. (177.80 cm) (R); Pain 0/10; 19:51 BP 143 / 75; Pulse 72; Resp 16; Pulse Ox 95% on R/A; mt 20:58 BP 139 / 79; Pulse 59; Resp 16; Temp 98.1(O); Pulse Ox 95% on R/A; jb4 21:54 BP 134 / 70; Pulse 64; Resp 16; Pulse Ox 96% on R/A; jb4 18:57 Body Mass Index 25.11 (79.38 kg, 177.80 cm) aj1 MDM: 18:45 Patient medically screened. snw 20:19 Data reviewed: vital signs, nurses notes. Data interpreted: Pulse oximetry: on room air snw is 95 %. Interpretation: acceptable. Counseling: I had a detailed discussion with the patient and/or guardian regarding: the historical points, exam findings, and any diagnostic results supporting the discharge/admit diagnosis, the presence of at least one elevated blood pressure reading (>120/80) during this emergency department visit, lab results, radiology results, the need for further work-up and treatment in the hospital. Physician consultation: A Elin DICKENS was called at 20:20, regarding admission, Dr. Worthington is building construction professor for Dr. Williamson. 07/31 18:53 Order name: T\T\S sn 07/31 18:53 Order name: Basic Metabolic Panel [facility] 07/31 18:53 Order name: Blood Culture Adult (2) [facility] 07/31 18:53 Order name: CBC with Diff [facility] 07/31 18:53 Order name: Ckmb [facility] 07/31 18:53 Order name: CPK [facility] 07/31 18:53 Order name: Lactate [facility] 07/31 18:53 Order name: LFT's [facility] 07/31 18:53 Order name: Lipase [facility] 07/31 18:53 Order name: Procalcitonin [facility] 07/31 18:53 Order name: Protime (+inr) [facility] 07/31 18:53 Order name: Ptt, Activated [facility] 07/31 18:53 Order name: Troponin (emerg Dept Use Only) [facility] 07/31 18:53 Order name: Urine Microscopic Only [facility] 07/31 18:53 Order name: Urine Culture [facility] 07/31 18:53 Order name: Flu [facility] 07/31 19:33 Order name: CBC with Automated Diff; Complete Time: 20:03 EDNV 07/31 19:39 Order name: Protime (+INR); Complete Time: 20:02 EDMS 07/31 19:39 Order name: PTT, Activated Partial Thromb; Complete Time: 20:02 EDMS 07/31 19:44 Order name: Lactate; Complete Time: 20:02 EDMS 07/31 19:57 Order name: Urine Dipstick--Ancillary (enter results) [facility] 07/31 19:57 Order name: ABO/RH no charge; Complete Time: 20:02 EDNV 07/31 19:59 Order name: Influenza Screen (A ; Complete Time: 20:02 EDMS 07/31 20:03 Order name: CBC Smear Scan; Complete Time: 20:03 EDMS 07/31 20:04 Order name: Procalcitonin; Complete Time: 20:06 EDMS 07/31 20:08 Order name: Basic Metabolic Panel; Complete Time: 20:09 EDMS 07/31 20:08 Order name: Liver (Hepatic) Function; Complete Time: 20:09 EDMS 07/31 20:08 Order name: Creatine Phosphokinase; Complete Time: 20:09 EDMS 07/31 20:08 Order name: CKMB Creatine Kinase MB; Complete Time: 20:09 EDMS 07/31 20:08 Order name: Troponin (Emerg Dept Use Only); Complete Time: 20:09 EDMS 07/31 18:53 Order name: Chest Single View XRAY snw 07/31 18:53 Order name: Accucheck; Complete Time: 20:00 snw 07/31 18:53 Order name: Cardiac monitoring; Complete Time: 19:50 snw 07/31 18:53 Order name: EKG - Nurse/Tech; Complete Time: 19:55 snw 07/31 18:53 Order name: IV Saline Lock - Large Bore; Complete Time: 19:50 snw 07/31 18:53 Order name: Labs collected and sent; Complete Time: 19:50 snw 07/31 18:53 Order name: O2 Per Protocol; Complete Time: 19:49 snw 07/31 18:53 Order name: O2 Sat Monitoring; Complete Time: 19:49 snw 07/31 18:53 Order name: Urine Dipstick-Ancillary (obtain specimen); Complete Time: 19:54 snw 07/31 19:19 Order name: RAD; Complete Time: 19:21 EDMS 07/31 20:08 Order name: Lipase; Complete Time: 20:09 EDMS 07/31 20:10 Order name: CT Abd/Pelvis - W/Contrast snw 07/31 20:13 Order name: Type and Screen; Complete Time: 20:15 EDMS 07/31 20:29 Order name: Urine Microscopic Only; Complete Time: 20:30 EDMS 07/31 22:29 Order name: Urine Dipstick-Ancillary; Complete Time: 22:32 EDMS Administered Medications: 19:30 CANCELLED (Physician Discretion; Pt recieved 1g of tylenol from EMS prior to arrival): jb4 Tylenol Suppository 650 mg WA once 19:40 Drug: NS 0.9% (30 ml/kg) 30 ml/kg Route: IV; Rate: bolus; Site: right forearm; jb4 22:55 Follow up: Response: No adverse reaction; IV Status: Infusion continued upon admission jb4 20:36 Drug: LevaQUIN 500 mg Volume: 100 ml; Route: IVPB; Infused Over: 60 mins; Site: right jb4 forearm; 21:34 Follow up: Response: No adverse reaction; IV Status: Completed infusion 4 20:36 Drug: Potassium Chloride 20 mEq Route: IV; Rate: calculated rate; Site: right forearm; jb4 22:54 Follow up: Response: No adverse reaction; IV Status: Infusion continued upon admission jb4 Disposition: 07/31/18 20:19 Hospitalization ordered by Rui Williamson for Inpatient Admission. Preliminary diagnosis are Fever, unspecified, Urinary tract infection, site not specified. - Bed requested for Telemetry/MedSurg (Inpatient). - Status is Inpatient Admission. jb4 - Condition is Stable. - Problem is new. - Symptoms have worsened. UTI on Admission? Yes Addendum: 08/02/2018 09:20 Co-signature as Attending Physician, Duc Nuñez MD I agree with the assessment and k dr plan of care. Signatures: Dispatcher [employer] EDMS Luz Perry RN RN ajColeen Damon RN Duc Chinchilla MD MD [facility] [address] Sera Mack, TRANSIT POLICE OFFICER-C TRANSIT POLICE OFFICER-Csnw Romaine Irving RN RN jb4 Corrections: (The following items were deleted from the chart) 07/31 19:30 18:53 Tylenol Suppository 650 mg WA once ordered. [facility] jb4 19:54 18:53 Mcgill ordered. [facility] jb4 19:55 18:53 Mcgill ordered. [facility] jb4 20:55 20:19 Hospitalization Ordered by Rui Williamson MD for Inpatient Admission. Preliminary kl diagnosis is Fever, unspecified; Urinary tract infection, site not specified. Bed requested for Telemetry/MedSurg (Inpatient). Status is Inpatient Admission. Condition is Stable. Problem is new. Symptoms have worsened. UTI on Admission? Yes. [facility] 22:55 20:55 07/31/2018 20:19 Hospitalization Ordered by Rui Williamson MD for Inpatient jb4 Admission. Preliminary diagnosis is Fever, unspecified; Urinary tract infection, site not specified. Bed requested for Telemetry/MedSurg (Inpatient). Status is Inpatient Admission. Condition is Stable. Problem is new. Symptoms have worsened. UTI on Admission? Yes. kl
[2018-07-31] MEDS ORDERED: Levofloxacin500mg IV 500 MG/100 ML BAG IV ONE (20:24)
[2018-07-31] MEDS ORDERED: KCL 20 MEQ/100 mL IVPB 20 MEQ/100 ML BAG IV ONE (20:24)
[2018-07-31 20:27] LABS: Urine Bacteria 20-50 /HPF (NONE SEEN)
[2018-07-31 20:28] LABS: Urine Culture Reflex Order NOT NEEDED; Urine Mucus 1+ /HPF (NONE SEEN)
[2018-07-31 22:28] LABS: Urine Blood 1+ (NEG); Urine Glucose NEGATIVE (NEG); Urine Protein NEGATIVE (NEG); Urine pH 8.5 (5.0-7.0)
[2018-07-31] MEDS ORDERED: ALBUTEROL 2.5 MG/3 ML NEB SOL NEB PRN (23:00)
[2018-07-31] MEDS ORDERED: IPRATROPIUM BROM 0.5MG/2.5ML NEB PRN (23:00)
[2018-07-31] MEDS ORDERED: ACETAMINOPHEN 500 MG TAB PO PRN (23:00)
[2018-07-31] MEDS: NS KCL 40MEQ 40 MEQ/1,000 ML BAG IV SCH (23:00)
[2018-07-31 23:31] VITALS: BMI 24.6
[2018-08-01] MEDS ORDERED: NS KCL 20MEQ 1,000 ML IV ONE (00:01)
[2018-08-01] MEDS: KCL 20 MEQ/100 mL IVPB 20 MEQ/100 ML BAG IV ONE (00:05)
[2018-08-01 05:13] LABS: Absolute Lymphocytes (CBC) 1.3 K/uL (0.7-4.9); Absolute Monocytes 0.8 K/uL (0.1-1.3); Absolute Neutrophil 9.4 K/uL (1.8-8.0); Basophils % 0.6 % (0-1.3); Eosinophils % 0.5 % (0-4.4); Hematocrit 34.4 % (39.6-49.0); Lymphocytes % 10.9 % (15.3-44.8); MCH 31.7 pg (27.0-35.0); MCV 92.7 fL (80-100); MPV 8.5 fL (7.6-11.3); Monocytes % 7.2 % (3.3-12.3); RBC Red Blood Cell Count 3.71 M/uL (4.33-5.43)
[2018-08-01 05:28] LABS: Potassium 3.8 mmol/L (3.5-5.1); Troponin I 0.06 ng/mL (0.0-0.045)
--- NOTE | 2018-08-01 08:28 | EKG ---
Test Date: 2018-07-31 Test Time: 19:52:42 Dog Handler: STEPHY MEASUREMENT RESULTS: Intervals: Rate: 76 ND: 192 QRSD: 82 QT: 432 QTc: 486 [place]: P: 30 ND: 192 QRS: 15 T: 43 INTERPRETIVE STATEMENTS: Sinus rhythm with sinus arrhythmia with occasional premature ventricular complexes Otherwise normal ECG Compared to ECG 10/30/2014 05:54:10 Ventricular premature complex(es) now present Sinus bradycardia no longer present Electronically Signed On 08-01-18 08:28:07 [employer] PASTOR by Chidi Fountain
[2018-08-01] MEDS: ONDANSETRON 4 MG/2 ML VIAL IV PRN (11:59)
[2018-08-01] MEDS: NS KCL 40MEQ 40 MEQ/1,000 ML BAG IV SCH (12:00)
--- NOTE | 2018-08-01 12:04 | RAD REPORT ---
EXAM DESCRIPTION: CTAbdomen Pelvis W Contrast - 08/01/2018 4:37 am CLINICAL HISTORY: Abdominal pain. prostatitis COMPARISON: Abdomen Pelvis W Contrast dated 06/04/2018 TECHNIQUE: Biphasic CT imaging of the abdomen and pelvis was performed with 100 ml non-ionic IV cont rast. All CT scans are performed using dose optimization technique as appropriate and may include automated exposure control or mA/KV adjustment according to patient size. FINDINGS: Linear subsegmental atelectasis both lung bases. The liver demonstrates no focal mass or biliary dilatation. The spleen, pancreas, adrenal glands are unremarkable. Mild bilateral hydroureter. Aortic atherosclerosis. No bowel obstruction, free air, free fluid or abscess. The appendix is normal. No evidence of signi ficant lymphadenopathy. Small fat containing umbilical hernia. No suspicious bony findings. Significant prostatomegaly is present. Urinary bladder wall appears thickened with multiple diverticu la present and small air bubble suggesting chronic bladder outlet obstruction. IMPRESSION: Significant prostatomegaly is seen with the urinary bladder wall thickening with small i ntraluminal air bubbles. 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
[2018-08-01] MEDS ORDERED: ALBUTEROL INHALER 60 PUFF/8 GM IH SCH (13:00)
[2018-08-01 14:30] LABS: Urine Appearance CLEAR; Urine Bilirubin NEGATIVE (NEG); Urine Blood 1+ (NEG); Urine Color YELLOW; Urine Glucose NEGATIVE (NEG); Urine Protein NEGATIVE (NEG); Urine Urobilinogen 0.2 mg/dL (0.2-1.0)
[2018-08-01] MEDS: CARBIDOPA/LEVODOPA 25/100 TAB PO SCH ×3 (14:36→21:36)
[2018-08-01 15:33] LABS: Urine Microscopic Reflex ORDER UMIC
[2018-08-01 15:41] LABS: Urine Bacteria <20 /HPF (NONE SEEN); Urine Culture Reflex Order REFLEXED
[2018-08-01] MEDS ORDERED: FLUDROCORTISONE 0.1 MG TAB PO SCH (18:00)
[2018-08-01] MEDS: MIRTAZAPINE 15 MG TAB PO SCH (18:08)
[2018-08-01] MEDS: Levofloxacin500mg IV 500 MG/100 ML BAG IV SCH (21:35)
[2018-08-01] MEDS: ATORVASTATIN 10 MG TAB PO SCH (21:35)
[2018-08-01] MEDS: ASPIRIN 81 MG CHEWABLE TABLET PO SCH (21:36)
[2018-08-01] MEDS: ALPRAZOLAM 0.5 MG TABLET PO SCH (21:36)
[2018-08-01] MEDS: TAMSULOSIN 0.4 MG SR CAP PO SCH (21:36)
--- NOTE | 2018-08-02 00:49 | CON ---
History Of Present Illness: Mr. Silverio came to the hospital with chills, shaking, elevated white b lood cell count, left shift, and evidence of urinary tract infection. I am asked to see him because his troponins are elevated. The patient is not having chest pain. Very likely, he has some degree o f CAD, but there is no EKG change or chest pain to go along with the borderline elevation in troponin to consider this to be an acute coronary syndrome. He has had nuclear stress test. He has not had anything in the way of intracoronary stents at least according to his memory and in our records that he has had any stents that have been done at [facility]. The patient is unable to relate that history . He does not use tobacco. Physical Examination: General: He is alert, oriented, pleasant. Fairly confused. Vital Signs: 5 feet 11 inches, 176 pounds. Lungs: Clear. Heart: Within normal limits. Abdomen: Soft. Extremities: Normal. Impression: The patient is receiving antibiotics for presumed urinary tract infection with near sept icemia. CAT scan indicates there is a small amount of air in the urine within the bladder, so I am t hinking that the antibiotics are likely to help. We will look for results from the urine culture and make sure we are treating him with the drug that is likely to be effective. SAGAR Voice ID: [id number] Report ID: [id number]
[2018-08-02] MEDS: NS KCL 40MEQ 40 MEQ/1,000 ML BAG IV SCH ×3 (02:47→21:41)
--- NOTE | 2018-08-02 04:53 | HP ---
Date of Admission: 07/31/2018 History: A 77-year-old male who presented to the emergency room with a complaint of feeling febrile with chills that his took his temperature, was up to 103. He was brought to the emergency room. The patient denies any chest pain or shortness of breath. No cough. No urinary symptoms. Voiced no other complaints. Review of Systems: Cardiovascular: No complaints. Respiratory: No complaints. Genitourinary: No complaints. Skeletomuscular: No complaints. Gastrointestinal: No complaints. Neurological: No complaints. Past Medical History: Includes: 1.Hypertension. 2.Benign prostatic hypertrophy. He was following up with Dr. Lyn. 3.COPD. 4.Hyperlipidemia. 5.Anxiety mixed with depression. No suicidal ideation. 6.Hyperlipidemia. 7.Parkinson disease. 8.B12 deficiency, vitamin. Social History: No smoking, alcohol, or drug abuse history. Family History: Noncontributing. Medications: Include Singulair 10 mg p.o. daily, 1 tablet daily, albuterol inhaler, Suzy dave 2 puffs q.i.d. p.r.n., alprazolam 0.5 mg p.o. daily, aspirin 81 mg p.o. daily, levodopa one p.o. q.i.d., atorvast atin 10 mg p.o. daily, Florinef 0.1 mg p.o. daily, Remeron 30 mg p.o. daily, multivitamins, Protonix 40 mg p.o. daily, Flomax 0.4 mg p.o. daily. Allergies: NO KNOWN DRUG ALLERGIES. Physical Examination: Vital Signs: Blood pressure 140/65, pulse 57, temperature 98.6. Heart: Regular rate and rhythm. Chest: Clear to auscultation. Abdomen: Soft, nontender. No hepatosplenomegaly. Bowel sounds are normoactive. Extremities: No edema. No cyanosis. Peripheral pulses are felt. Neurological: Alert, oriented, nonfocal. Grossly intact. Diagnostic Studies: Chest x-ray, no acute pathology. EKG: Sinus arrhythmia, occasional PVCs. Abdo men and pelvic CT shows significant prostate enlargement with urinary bladder thickening and small in traluminal air bubbles. Bladder outlet obstruction, cystitis. White cell count 11.6, neutrophils 82 .8, hemoglobin 11.8, hematocrit 34.4, platelets 212. Chemistry: Chloride 111, BUN 12, creatinine 1. 0, and troponin 0.05 and 0.06. Procalcitonin 1.2. Assessment And Plan: 1.Sepsis evident by elevated procalcitonin from cystitis, urinary tract infection. Cultures have be en drawn and the patient is put on IV Levaquin antibiotic pending cultures of blood and urine. 2.Chronic medical problems. We will continue the patient on his home medications for his chronic me dical illnesses. 3.Elevated troponin. I have consulted Cardiology. Look orders for details. MFS/MODL Voice ID: [id number]
[2018-08-02 05:46] LABS: Absolute Lymphocytes (CBC) 1.2 K/uL (0.7-4.9); Absolute Neutrophil 7.3 K/uL (1.8-8.0); Basophils % 0.9 % (0-1.3); Eosinophils % 1.4 % (0-4.4); Hematocrit 34.8 % (39.6-49.0); Lymphocytes % 12.9 % (15.3-44.8); MCV 92.6 fL (80-100); Monocytes % 6.6 % (3.3-12.3); RBC Red Blood Cell Count 3.76 M/uL (4.33-5.43)
[2018-08-02 05:47] LABS: Absolute Monocytes 0.6 K/uL (0.1-1.3)
[2018-08-02 06:01] LABS: BUN Blood Urea Nitrogen 11 mg/dL (7-18); Bicarbonate 25 mmol/L (21-32); Glucose Level 98 mg/dL (74-106); Phosphorus 1.7 mg/dL (2.5-4.9); Potassium 3.4 mmol/L (3.5-5.1); Sodium Level 144 mmol/L (136-145)
[2018-08-02] MEDS: PANTOPRAZOLE 40MG TABLET PO SCH (06:34)
[2018-08-02] MEDS: POTASS/SODIUM PHOSPHATE 1 PKT POWD.PACK PO SCH ×3 (07:14→09:47)
[2018-08-02] MEDS ORDERED: HOME MED 1 EA UNK (Folic Acid [Folic Acid] 0.4 MG) PO SCH (09:00)
[2018-08-02] MEDS: ONDANSETRON 4 MG/2 ML VIAL IV PRN (09:01)
[2018-08-02] MEDS: MULTIVITAMIN TAB PO SCH (09:06)
[2018-08-02] MEDS: ASPIRIN 81 MG CHEWABLE TABLET PO SCH ×2 (09:06→21:42)
[2018-08-02] MEDS: CITALOPRAM 10 MG TABLET PO SCH (09:07)
[2018-08-02] MEDS: CARBIDOPA/LEVODOPA 25/100 TAB PO SCH ×4 (09:07→21:42)
[2018-08-02] MEDS: ALPRAZOLAM 0.5 MG TABLET PO SCH ×2 (09:09→21:42)
[2018-08-02] MEDS: CYANOCOBALAMIN 1,000 MCG TAB PO SCH (09:10)
--- NOTE | 2018-08-02 16:12 | PN ---
Subjective: He is not exhibiting any signs that he has unstable angina in spite of the troponins irasema ng slightly elevated. If an echocardiogram tomorrow shows no wall motion abnormality, I will sign of f Mr. Silverio case and attribute the slight elevation of troponins to his underlying infection. SAGAR Voice ID: [id number] Report ID: [id number]
[2018-08-02] MEDS: MIRTAZAPINE 15 MG TAB PO SCH (17:31)
[2018-08-02] MEDS: ATORVASTATIN 10 MG TAB PO SCH (21:42)
[2018-08-02] MEDS: TAMSULOSIN 0.4 MG SR CAP PO SCH (21:42)
[2018-08-02] MEDS: Levofloxacin500mg IV 500 MG/100 ML BAG IV SCH (21:45)
[2018-08-03] MEDS: PANTOPRAZOLE 40MG TABLET PO SCH (05:28)
[2018-08-03 06:22] LABS: Phosphorus 2.5 mg/dL (2.5-4.9); Potassium 3.5 mmol/L (3.5-5.1)
[2018-08-03 08:46] VITALS: O2SAT 94
[2018-08-03] MEDS ORDERED: POTASSIUM PHOS IN 0.9 % NACL 15 MMOL/250 ML BAG IV ONE (09:00)
[2018-08-03] MEDS ORDERED: FOLIC ACID 1 MG TABLET PO SCH (09:00)
[2018-08-03] MEDS: CITALOPRAM 10 MG TABLET PO SCH (09:28)
[2018-08-03] MEDS: CARBIDOPA/LEVODOPA 25/100 TAB PO SCH ×3 (09:28→17:26)
[2018-08-03] MEDS: MULTIVITAMIN TAB PO SCH (09:28)
[2018-08-03] MEDS: ASPIRIN 81 MG CHEWABLE TABLET PO SCH (09:28)
[2018-08-03] MEDS: ALPRAZOLAM 0.5 MG TABLET PO SCH (09:28)
[2018-08-03] MEDS: CYANOCOBALAMIN 1,000 MCG TAB PO SCH (09:29)
--- NOTE | 2018-08-03 12:22 | ECHO ---
HEIGHT: 5 ft 11 in WEIGHT: 176 lb 9.6 oz DATE OF STUDY: 08/03/[address]: Chidi Fountain MD 2-DIMENSIONAL: YES M.MODE: YES DOPPLER: YES COLOR FLOW: YES TDS: NO PORTABLE: NO DEFINITY: NO BUBBLE STUDY: NO DIAGNOSIS: ABNORMAL TROPONIN I CARDIAC HISTORY: CATHERIZATION: SURGERY: PROSTHETIC VALVE: PACEMAKER: MEASUREMENTS (cm) DIASTOLIC (NORMALS) SYSTOLIC (NORMALS) IVSd 1.0 (0.6-1.2) LA Diam 3.8 (1.9-4.0) LVEF 73% LVIDd 4.7 (3.5-5.7) LVIDs 2.7 (2.0-3.5) %FS 42% LVPWd 1.1 (0.6-1.2) Ao Diam 3.3 (2.0-3.7) 2 DIMENSIONAL ASSESSMENT: RIGHT ATRIUM: NORAML LEFT ATRIUM: NORMAL RIGHT VENTRICLE: NORMAL LEFT VENTRICLE: NORMAL TRICUSPID VALVE: NORMAL MITRAL VALVE: NORMAL PULMONIC VALVE: NORMAL AORTIC VALVE: NORMAL PERICARDIAL EFFUSION: NONE AORTIC ROOT: NORMAL LEFT VENTRICULAR WALL MOTION: NORMAL. DOPPLER/COLOR FLOW: MILD AORTIC, MITRAL AND TRICUSPID REGURGITATION. NORMAL RIGHT VENTRICULAR SYSTOLIC PRESSURE. COMMENTS: NORMAL 2D ECHO. MILD AORTIC, MITRAL AND TRICUSPID REGURGITATION. TECHNOLOGIST: PRASHANT BRONSON
[2018-08-03] MEDS: MIRTAZAPINE 15 MG TAB PO SCH (17:25)
[2018-08-03] MEDS: NS KCL 40MEQ 40 MEQ/1,000 ML BAG IV SCH (17:35)
[2018-08-03 18:10] VITALS: BP 173/84; TEMP 98.1
--- NOTE | 2018-08-04 13:07 | PN ---
Subjective: The patient is no chest pain, no shortness of breath. Objective: Vital Signs: Blood pressure 112/70, pulse 64, temperature 97.2, room air pulse oximetry 94%. Heart: Regular rate and rhythm. Chest: Mild bilateral crackles. Abdomen: Soft. Benign. Bowel sounds are active. Extremities: Peripheral pulses are felt. Laboratory Data: White cell count 9.4, hemoglobin , calcium , troponin _. Urine culture showed . Assessment/plan: 1. . 2. Dr. Fountain seeing the patient . 3.Electrolyte imbalance. The patient is on electrolyte . 4. monitor. MFS/MODL Voice ID: [id number] Report ID: [id number]
== END 2018-08-03 18:18 | disposition home health service (06) | DRG 872 ==
LOC: ER 18:24 → ERHOLD 20:21 → 2ND 22:33
PROVIDERS: ADMIT Internal Medicine; ATTEND Internal Medicine
DX: A41.9 Sepsis, unspecified organism (principal); N30.90 Cystitis, unspecified without hematuria; I10 Essential (primary) hypertension; N40.0 Benign prostatic hyperplasia without lower urinary tract symptoms; J44.9 Chronic obstructive pulmonary disease, unspecified; E78.5 Hyperlipidemia, unspecified; F41.8 Other specified anxiety disorders; G20 Parkinson's disease; E53.8 Deficiency of other specified B group vitamins
CPT/HCPCS: 36415; 71045; 74177; 80048; 80076; 81003; 81015; 82550; 82553; 83605; 83690; 83735; 84100; 84132; 84145; 84484; 85025; 85610; 85730; 86850; 86900; 86901; 87040; 87077; 87086; 87088; 87186; 87804; 93005; 93306; 94760; 96365; 96367; 99285; J2405; J7030; Q9967

== ENCOUNTER 2018-10-28 10:15 | Day surgery (SDC) | payer OTHER ==
--- NOTE | 2018-10-16 12:52 | RAD REPORT ---
EXAM DESCRIPTION: Sandeep Single View10/16/2018 12:46 pm CLINICAL HISTORY: Preop COMPARISON: July 2018 FINDINGS: The lungs appear clear of acute infiltrate. The heart is normal size IMPRESSION: No acute abnormalities displayed
[2018-10-16 13:11] LABS: Urine Appearance CLOUDY; Urine Bilirubin NEGATIVE (NEG); Urine Blood NEGATIVE (NEG); Urine Color YELLOW; Urine Glucose NEGATIVE (NEG); Urine Microscopic Reflex ORDER UMIC; Urine Protein 1+ (NEG); Urine Specific Gravity 1.025 (1.005-1.030); Urine Urobilinogen 0.2 mg/dL (0.2-1.0); Urine pH 5.5 (5.0-7.0)
[2018-10-16 13:16] LABS: Absolute Monocytes 0.4 K/uL (0.1-1.3); Absolute Neutrophil 5.4 K/uL (1.8-8.0); Basophils % 1.2 % (0-1.3); Eosinophils % 1.6 % (0-4.4); Hematocrit 41.5 % (39.6-49.0); Lymphocytes % 14.4 % (15.3-44.8); RBC Red Blood Cell Count 4.53 M/uL (4.33-5.43)
[2018-10-16 13:25] LABS: Protime INR 1.03
[2018-10-16 13:31] LABS: Urine Bacteria 20-50 /HPF (NONE SEEN); Urine Culture Reflex Order NOT NEEDED; Urine RBC <5 /HPF (NONE SEEN); Urine Yeast PRESENT (NONE SEEN); Urine Yeast with Hyphae PRESENT
--- NOTE | 2018-10-16 16:20 | EKG ---
Test Date: 2018-10-16 Test Time: 12:23:15 Husbandry Person: EVARISTO MEASUREMENT RESULTS: Intervals: Rate: 61 HI: 190 QRSD: 74 QT: 426 QTc: 428 [place]: P: 32 HI: 190 QRS: 25 T: 49 INTERPRETIVE STATEMENTS: Sinus rhythm with premature atrial complexes with aberrant conduction Otherwise normal ECG Compared to ECG 07/31/2018 19:52:42 Atrial premature complex(es) now present Aberrant conduction of supraventricular beat(s) now present Sinus arrhythmia no longer present Ventricular premature complex(es) no longer present Electronically Signed On 10-16-18 16:18:22 WATCH TRAIN ASSEMBLER by Nicholas Velasco
[2018-10-28] MEDS ORDERED: Ringers Lactate 1,000 ML IV ONE ×2 (10:58→12:53)
[2018-10-28] MEDS ORDERED: GENTAMICIN 80 MG/100 ML BAG 80 MG/100 ML BAG IV ONE (10:59)
[2018-10-28] MEDS ORDERED: MIDAZOLAM HCL 2 MG/2 ML INJ ONE (11:51)
[2018-10-28] MEDS ORDERED: LIDOCAINE 2% MPF 5 ML VIAL ONE ×2 (11:54→13:46)
[2018-10-28] MEDS ORDERED: PROPOFOL 200 MG/20 ML VIAL IV ONE ×2 (11:54→13:46)
[2018-10-28] MEDS ORDERED: GLYCOPYRROLATE 0.2 MG/ML SYR ONE (12:46)
[2018-10-28] MEDS ORDERED: FENTANYL CITR 100 MCG/2 ML ONE (13:45)
[2018-10-28] MEDS ORDERED: ONDANSETRON 4 MG/2 ML VIAL ONE (13:46)
[2018-10-28 15:40] VITALS: BMI 24.4
[2018-10-28] MEDS ORDERED: SODIUM CHL 0.9% IRR SOLN 2000 ML IRR SCH (19:00)
[2018-10-29 00:50] VITALS: O2SAT 95
[2018-10-29 14:04] VITALS: BP 145/67; TEMP 98.4
--- NOTE | 2018-10-29 18:50 | PN ---
Subjective: The patient is doing well. Urine is clear. Ready to go home. Objective: Vital Signs: Stable. T-max of 99.1, pulse 68, respiratory rate 22, blood pressure 146/6 6, sats 96%. Assessment: 1.Status post transurethral resection of the prostate, postop day 1. 2.Final urine is clear. Plan: Discharged the patient home. Encouraged to take lots of deep breaths. He also has option of having a home health nurse see him for the week. I will see me in 1 week to develop voiding trial, r emove his Mcgill catheter and see how things went. PB/MODL Voice ID: [id number] Report ID: [id number]
== END 2018-10-29 16:50 | disposition home or self-care (01) ==
LOC: OR 10:15 → SUATTDRO 10:15 → 4TH 13:50 → OR 10-29 16:50
PROVIDERS: ATTEND Urology
PROC: 0V508ZZ Destruction of Prostate, Via Natural or Artificial Opening Endoscopic (ICD-10-PCS; principal; 2018-10-28 12:00)
DX: N40.1 Benign prostatic hyperplasia with lower urinary tract symptoms (principal); N13.8 Other obstructive and reflux uropathy; R33.8 Other retention of urine; R39.12 Poor urinary stream; J45.20 Mild intermittent asthma, uncomplicated; K59.09 Other constipation; G20 Parkinson's disease; I10 Essential (primary) hypertension; E78.5 Hyperlipidemia, unspecified; F32.9 Major depressive disorder, single episode, unspecified; Z79.51 Long term (current) use of inhaled steroids; Z79.82 Long term (current) use of aspirin; Z79.899 Other long term (current) drug therapy
CPT/HCPCS: 52601; 93005; 87088; 85025; 87086; 80048; 36415; 85610; 88305; 85730; 71045; J2704 ×2; J2250; J3010; J1580; J2405; 81003; 81015

== ENCOUNTER 2018-11-10 14:10 | Inpatient (IN) | payer OTHER ==
[2018-11-10 15:12] LABS: Protime INR 1.15
[2018-11-10 15:13] LABS: Absolute Lymphocytes (CBC) 1.4 K/uL (0.7-4.9); Absolute Monocytes 0.5 K/uL (0.1-1.3); Absolute Neutrophil 6.4 K/uL (1.8-8.0); Basophils % 1.1 % (0-1.3); Eosinophils % 1.9 % (0-4.4); Hematocrit 42.9 % (39.6-49.0); Lymphocytes % 16.4 % (15.3-44.8); MPV 8.4 fL (7.6-11.3); Monocytes % 5.5 % (3.3-12.3); RBC Red Blood Cell Count 4.76 M/uL (4.33-5.43)
[2018-11-10 15:26] LABS: ALT/SGPT 26 U/L (12-78); AST/SGOT 20 U/L (15-37); Albumin 3.1 g/dL (3.4-5.0); Alkaline Phosphatase 113 U/L (45-117); BUN Blood Urea Nitrogen 13 mg/dL (7-18); Bicarbonate 30 mmol/L (21-32); Bilirubin Direct 0.1 mg/dL (0-0.2); Bilirubin Total 0.6 mg/dL (0.2-1.0); Glucose Level 103 mg/dL (74-106); Magnesium 2.3 mg/dL (1.8-2.4); NT PRO-BNP 230 pg/mL (<450); Potassium 3.7 mmol/L (3.5-5.1); Protein, Total 6.9 g/dL (6.4-8.2); Sodium Level 142 mmol/L (136-145); Troponin (Emerg Dept Use Only) < 0.02 ng/mL (0.0-0.045)
--- NOTE | 2018-11-10 15:48 | RAD REPORT ---
EXAM DESCRIPTION: RAD - Chest Single View - 11/10/2018 3:32 pm CLINICAL HISTORY: general weakness Chest pain. COMPARISON: Chest Single View dated 10/16/2018; Chest Single View dated 07/31/2018; Chest Pa And Lat (2 Views) dated 07/28/2018; Chest Single View dated 10/03/2017 FINDINGS: Portable technique limits examination quality. The lungs are grossly clear. The heart is normal in size. No displaced fractures. IMPRESSION: No acute intrathoracic process suspected.
[2018-11-10 16:00] LABS: Urine Blood 3+ (NEG); Urine Glucose NEGATIVE (NEG); Urine Protein 3+ (NEG); Urine Specific Gravity 1.015 (1.005-1.030); Urine pH 5.5 (5.0-7.0)
[2018-11-10 16:00] LABS: Urine Bacteria 20-50 /HPF (NONE SEEN); Urine Culture Reflex Order REFLEXED; Urine Mucus 2+ /HPF (NONE SEEN)
[2018-11-10] MEDS ORDERED: NA CHLORIDE 0.9% 1,000 ML ONE (16:18)
--- NOTE | 2018-11-10 16:49 | RAD REPORT ---
EXAM DESCRIPTION: CT - Head Brain Wo Cont - 11/10/2018 4:43 pm CLINICAL HISTORY: general weakness Headache, drowsiness COMPARISON: No comparisons TECHNIQUE: All CT scans are performed using dose optimization technique as appropriate and may inclu de automated exposure control or mA/KV adjustment according to patient size. FINDINGS: No intracranial hemorrhage, hydrocephalus or extra-axial fluid collection.Mild generalized brain atrophy is present with moderate periventricular and deep white matter chronic microvascular i schemic changes.No areas of brain edema or evidence of midline shift. The paranasal sinuses and mastoids are clear. The calvarium is intact. IMPRESSION: No acute intracranial abnormality.
[2018-11-10] MEDS ORDERED: CEFTRIAXONE/SWI 1gm 1 GM/10 ML SYR ONE (17:56)
--- NOTE | 2018-11-10 18:34 | ER ---
Nurse's Notes [facility] Name: Taz Silverio Age: 77 yrs Sex: Male : 1940 Arrival Date: 11/10/2018 Time: 14:28 Bed 8 Private MD: Diagnosis: Altered mental status, unspecified;Other sepsis;Weakness-general;Urinary tract infection, site not specified Presentation: 11/10 14:28 Presenting complaint: EMS states: Pt had TURP on October 29 and reports generalized aa5 weakness that is getting worse since then. Mcgill in place noted. Pt was recently admitted here for UTI and fever. Transition of care: patient was not received from another setting of care. Onset of symptoms was November 10, 2018. Risk Assessment: Do you want to hurt yourself or someone else? Patient reports no desire to harm self or others. Care prior to arrival: Glucose check: 104. 14:28 Method Of Arrival: EMS: [facility] aa5 14:28 Acuity: SUKHJINDER 3 aa5 14:55 Initial Sepsis Screen: Does the patient meet any 2 criteria? RR > 20 per min. HR > 90 hj bpm. Does the patient have a suspected source of infection? Yes:. Triage Assessment: 14:55 General: Appears in no apparent distress. uncomfortable, Behavior is calm, cooperative, hj appropriate for age. Pain: Denies pain. Historical: - Allergies: 14:28 No Known Allergies; aa5 - Home Meds: 14:55 Advair Diskus 250-50 mcg/dose Inhl dsdv 1 puff 2 times per day [Active]; albuterol hj sulfate 1.25 mg/3 mL Inhl nebu 3 mL 3 times per day [Active]; alprazolam 0.5 mg Oral tab 1 tab twice a day [Active]; aspirin 81 mg Oral TbEC 1 tab once daily [Active]; Azilect 1 mg Oral tab 1 tab once daily [Active]; carbidopa-levodopa 25-100 mg Oral TbER 1 tab 4 times per day [Active]; citalopram 40 mg tab 1 tab once daily [Active]; fludrocortisone 0.1 mg Oral tab 1 tab once daily [Active]; mirtazapine 30 mg Oral TbDL 1 tab once daily [Active]; montelukast 10 mg Oral tab 1 tab once daily [Active]; omeprazole 20 mg Oral cpDR 1 cap once daily [Active]; pravastatin 40 mg Oral tab 1 tab once daily [Active]; tamsulosin 0.4 mg Oral cp24 1 cap once daily [Active]; Vitamin B-12 2,000 mcg Oral TbER [Active]; - PMHx: 14:28 Asthma; Hyperlipidemia; Hypertension; Parkinsons; aa5 - PSHx: 14:28 TURP; aa5 - Immunization history:: Adult Immunizations up to date. - Ebola Screening: : No symptoms or risks identified at this time. - Social history:: Smoking status: Patient/guardian denies using tobacco, Patient/guardian denies using alcohol. Screenin:55 Abuse screen: Denies threats or abuse. Denies injuries from another. Nutritional hj screening: No deficits noted. Tuberculosis screening: No symptoms or risk factors identified. Fall Risk None identified. Assessment: 14:45 General: Appears in no apparent distress. uncomfortable, Behavior is calm, cooperative, hj appropriate for age. Pain: Denies pain. Neuro: Level of Consciousness is awake, alert, obeys commands, Oriented to person, place, time, situation, Appropriate for age. Cardiovascular: Capillary refill < 3 seconds Patient's skin is warm and dry. Respiratory: Airway is patent Respiratory effort is even, unlabored, Respiratory pattern is regular, symmetrical. GI: No signs and/or symptoms were reported involving the gastrointestinal system. : Mcgill in place. EENT: No signs and/or symptoms were reported regarding the EENT system. Derm: No signs and/or symptoms reported regarding the dermatologic system. Musculoskeletal: No signs and/or symptoms reported regarding the musculoskeletal system. 15:42 Reassessment: Patient and/or family updated on plan of care and expected duration. Pain hj level reassessed. Patient is alert, oriented x 3, equal unlabored respirations, skin warm/dry/pink. awaiting results and POC:. 16:29 Reassessment: Patient and/or family updated on plan of care and expected duration. Pain hj level reassessed. Patient is alert, oriented x 3, equal unlabored respirations, skin warm/dry/pink. family in room ; wheeled to ME;. 17:25 Reassessment: Patient and/or family updated on plan of care and expected duration. Pain hj level reassessed. Patient is alert, oriented x 3, equal unlabored respirations, skin warm/dry/pink. awaiting room placement;. 18:44 Reassessment: Patient and/or family updated on plan of care and expected duration. Pain hj level reassessed. Patient is alert, oriented x 3, equal unlabored respirations, skin warm/dry/pink. family in room; aware about admit POC:. 19:00 General: Appears in no apparent distress. comfortable, Behavior is calm, cooperative, rr5 appropriate for age. Pain: Denies pain. Neuro: Level of Consciousness is awake, alert, obeys commands, Oriented to person, place, time, situation, Appropriate for age Reports weakness. Cardiovascular: Capillary refill < 3 seconds Patient's skin is warm and dry. Rhythm is sinus bradycardia. Respiratory: Airway is patent Respiratory effort is even, unlabored, Respiratory pattern is regular, symmetrical. 19:00 GI: No signs and/or symptoms were reported involving the gastrointestinal system. : rr5 Mcgill [address]. EENT: No signs and/or symptoms were reported regarding the EENT system. Derm: No signs and/or symptoms reported regarding the dermatologic system. Musculoskeletal: Capillary refill < 3 seconds. 20:00 Reassessment: Patient appears in no apparent distress at this time. Patient is alert, rr5 oriented x 3, equal unlabored respirations, skin warm/dry/pink. awaiting for room assignment. 21:00 Reassessment: Patient appears in no apparent distress at this time. Patient is alert, rr5 oriented x 3, equal unlabored respirations, skin warm/dry/pink. patient informed for room assignment in 217. 21:30 Reassessment: history taking done by andre SAL. rr5 22:05 Reassessment: Patient appears in no apparent distress at this time. endorsed to medical rr5 surgical floor. Vital Signs: 14:30 BP 156 / 80; Pulse 57; Resp 16 S; Temp 98.8(O); Pulse Ox 96% on R/A; aa5 15:42 BP 124 / 61; Pulse 60; Resp 18; Pulse Ox 97% on R/A; hj 16:29 BP 128 / 62; Pulse 49; Resp 18; Pulse Ox 97% on 2 lpm NC; hj 17:26 BP 138 / 77; Pulse 52; Resp 18; Pulse Ox 98% on 2 lpm NC; hj 18:35 BP 157 / 75; Pulse 55; Resp 20; Pulse Ox 99% ; pc1 19:00 BP 151 / 70; Pulse 58; Resp 17; Temp 98; Pulse Ox 98% on 2 lpm NC; Pain 0/10; rr5 20:00 BP 138 / 76; Pulse 56; Resp 18; Pulse Ox 99% 2 lpm ; rr5 21:00 BP 131 / 70; Pulse 57; Resp 17; Pulse Ox 99% on 2 lpm NC; rr5 22:00 BP 145 / 76; Pulse 60; Resp 17; Temp 98; Pulse Ox 98% 2 lpm ; rr5 22:35 BP 132 / 70; Pulse 59; Resp 17; Pulse Ox 99% on 2 lpm NC; rr5 16:29 provider notified; to conitnu to monitor; hj ED Course: 14:28 Patient arrived in ED. aa5 14:28 Arm band placed on. aa5 14:30 Triage completed. aa5 14:32 Deejay Woods PA is PHCP. cp 14:32 Cali Abbott MD is Attending Physician. cp 14:45 Manpreet Snyder RN is Primary Nurse. hj 14:45 Initial lab(s) drawn, by wv, sent to lab. Inserted saline lock: 20 gauge in right hj antecubital area, using aseptic technique. Blood collected. 14:55 Patient has correct armband on for positive identification. Placed in gown. Bed in low hj position. Call light in reach. 15:13 EKG done, by drain technician. reviewed by Deejay DON. at1 15:30 X-ray completed. Portable x-ray completed in exam room. Patient tolerated procedure ml well. 15:33 XRAY Chest (1 view) In Process Unspecified. EDMS 16:[address] via stretcher. nj 16:44 CT Head Brain wo Cont In Process Unspecified. EDMS 18:31 Rui Williamson MD is Hospitalizing Provider. cp 19:00 hot iron worker on. Pulse ox on. NIBP on. rr5 20:25 Christian Olivier RN is Primary Nurse. rr5 22:04 No provider procedures requiring assistance completed. Patient admitted, IV remains in rr5 place. intact. Administered Medications: 16:07 Drug: NS 0.9% 500 ml Route: IV; Rate: bolus; Site: left antecubital; hj 17:43 Drug: Rocephin - (cefTRIAXone) 1 grams Route: IVPB; Infused Over: 30 mins; Site: right hj antecubital; 17:53 Follow up: IV Status: Completed infusion hj Outcome: 18:34 Decision to Hospitalize by Provider. cp 22:04 Admitted to Med/surg accompanied by tech, via stretcher, room 217, with chart, Report rr5 called to le 22:04 Condition: stable 22:04 Instructed on the need for admit. 22:40 Patient left the ED. rr5 Signatures: Dispatcher [employer] EDMS Chrissy Ferguson Audri, RN RN aa5 Marilynn Solano, acute care nursing assistant EKG Tat1 Manpreet Snyder RN RN hj Deejay Woods PA PA cp Jordan, Nathan nj Roque, Raymond RN RN rr5 Jorgito Gomez Corrections: (The following items were deleted from the chart) 14:30 14:28 Presenting complaint: EMS states: Pt had TURP on October and reports aa5 generalized weakness that is getting worse since then. Mcgill in place noted. Pt was recently admitted here. aa5 22:40 22:00 BP 145 / 76; Pulse 70bpm; Resp 17bpm; Pulse Ox 98% 2 lpm; Temp 98F; rr5 rr5 11/11 16:38 0312 14:28 Presenting complaint: EMS states: Pt had TURP on October and reports aa5 generalized weakness that is getting worse since then. Mcgill in place noted. Pt was recently admitted here for UTI and fever. aa5
--- NOTE | 2018-11-10 18:34 | EDPHYS ---
Physician Documentation [facility] Name: Taz Silverio Age: 77 yrs Sex: Male : 1940 Arrival Date: 11/10/2018 Time: 14:28 Bed 8 Private MD: ED Physician Cali Abbott HPI: 11/10 14:55 This 77 yrs old Male presents to ER via EMS with complaints of General cp Weakness. 14:55 The patient's problem is reported as weakness, that is generalized. Onset: The cp symptoms/episode began/occurred last month, and became worse yesterday. 14:55 Duration: The episode is continuous. Associated signs and symptoms: Pertinent cp positives: fever, AMS. Patient's baseline: Neuro: alert and fully oriented, Motor: no deficits, Ambulation: walks without assistance, Speech: normal. reports patient had TURP procedure performed by DR Lyn on 10-29-2018 and since procedure, general weakness, low grade fever yesterday and confusion. Historical: - Allergies: 14:28 No Known Allergies; aa5 - Home Meds: 14:55 Advair Diskus 250-50 mcg/dose Inhl dsdv 1 puff 2 times per day [Active]; albuterol hj sulfate 1.25 mg/3 mL Inhl nebu 3 mL 3 times per day [Active]; alprazolam 0.5 mg Oral tab 1 tab twice a day [Active]; aspirin 81 mg Oral TbEC 1 tab once daily [Active]; Azilect 1 mg Oral tab 1 tab once daily [Active]; carbidopa-levodopa 25-100 mg Oral TbER 1 tab 4 times per day [Active]; citalopram 40 mg tab 1 tab once daily [Active]; fludrocortisone 0.1 mg Oral tab 1 tab once daily [Active]; mirtazapine 30 mg Oral TbDL 1 tab once daily [Active]; montelukast 10 mg Oral tab 1 tab once daily [Active]; omeprazole 20 mg Oral cpDR 1 cap once daily [Active]; pravastatin 40 mg Oral tab 1 tab once daily [Active]; tamsulosin 0.4 mg Oral cp24 1 cap once daily [Active]; Vitamin B-12 2,000 mcg Oral TbER [Active]; - PMHx: 14:28 Asthma; Hyperlipidemia; Hypertension; Parkinsons; aa5 - PSHx: 14:28 TURP; aa5 - Immunization history:: Adult Immunizations up to date. - Ebola Screening: : No symptoms or risks identified at this time. - Social history:: Smoking status: Patient/guardian denies using tobacco, Patient/guardian denies using alcohol. ROS: 15:00 Constitutional: Positive for poor PO intake, Negative for fever. cp 15:00 Eyes: Negative for injury, pain, redness, and discharge. cp 15:00 ENT: Negative for drainage from ear(s), ear pain, sore throat, difficulty swallowing, difficulty handling secretions. 15:00 Cardiovascular: Negative for chest pain, edema, palpitations. 15:00 Respiratory: Negative for cough, shortness of breath, wheezing. 15:00 Abdomen/GI: Negative for abdominal pain, vomiting, diarrhea, constipation, black/tarry stool, rectal bleeding. 15:00 Back: Negative for injury or acute deformity. 15:00 : Negative for hematuria. 15:00 Skin: Negative for cellulitis, rash. 15:00 Neuro: Positive for altered mental status, weakness, Negative for headache. 15:00 All other systems are negative. Exam: 15:05 Constitutional: The patient appears in no acute distress, alert, awake, cp non-diaphoretic, non-toxic, well developed, well nourished. 15:05 Head/Face: Normocephalic, atraumatic. Eyes: Pupils equal round and reactive to light, cp extra-ocular motions intact. Lids and lashes normal. Conjunctiva and sclera are non-icteric and not injected. Cornea within normal limits. Periorbital areas with no swelling, redness, or edema. 15:05 ENT: External ear(s): are unremarkable, Ear canal(s): are normal, clear, TM's: bulging, is not appreciated, bilaterally, dullness, bilaterally, erythema, is not appreciated, bilaterally, Nose: is normal, Mouth: Lips: dry, Oral mucosa: dry, Posterior pharynx: Airway: no evidence of obstruction, patent, Tonsils: are normal in appearance, swelling, is not appreciated, erythema, is not appreciated, exudate, is not appreciated. 15:05 Neck: ROM/movement: is normal, is supple, without pain, no range of motions limitations, no meningismus, no nuchal rigidity. 15:05 Chest/axilla: Inspection: normal, Palpation: is normal, no crepitus, no tenderness. 15:05 Cardiovascular: Rate: bradycardic, Rhythm: regular, Edema: is not appreciated, JVD: is not appreciated. 15:05 Respiratory: the patient does not display signs of respiratory distress, Respirations: normal, no use of accessory muscles, no retractions, no splinting, no tachypnea, labored breathing, is not present, Breath sounds: are clear throughout, no decreased breath sounds, no stridor, no wheezing. 15:05 Abdomen/GI: Inspection: abdomen appears normal, Bowel sounds: active, all quadrants, Palpation: abdomen is soft and non-tender, in all quadrants. 15:05 Back: pain, is absent, ROM is normal. 15:05 : a page is noted, urine is cloudy. 15:05 Skin: cellulitis, is not appreciated, no rash present. 15:05 Neuro: Orientation: to person, place, situation, Mentation: slow to respond, Cerebellar function: is grossly normal, Motor: moves all fours, general weakness w/o focal deficits, Sensation: is normal. 17:00 Radiologist reports: no acute findings cp Vital Signs: 14:30 BP 156 / 80; Pulse 57; Resp 16 S; Temp 98.8(O); Pulse Ox 96% on R/A; aa5 15:42 BP 124 / 61; Pulse 60; Resp 18; Pulse Ox 97% on R/A; hj 16:29 BP 128 / 62; Pulse 49; Resp 18; Pulse Ox 97% on 2 lpm NC; hj 17:26 BP 138 / 77; Pulse 52; Resp 18; Pulse Ox 98% on 2 lpm NC; hj 18:35 BP 157 / 75; Pulse 55; Resp 20; Pulse Ox 99% ; pc1 19:00 BP 151 / 70; Pulse 58; Resp 17; Temp 98; Pulse Ox 98% on 2 lpm NC; Pain 0/10; rr5 20:00 BP 138 / 76; Pulse 56; Resp 18; Pulse Ox 99% 2 lpm ; rr5 21:00 BP 131 / 70; Pulse 57; Resp 17; Pulse Ox 99% on 2 lpm NC; rr5 22:00 BP 145 / 76; Pulse 60; Resp 17; Temp 98; Pulse Ox 98% 2 lpm ; rr5 22:35 BP 132 / 70; Pulse 59; Resp 17; Pulse Ox 99% on 2 lpm NC; rr5 16:29 provider notified; to conitnu to monitor; MDM: 14:32 Patient medically screened. cp 15:00 Differential diagnosis: metabolic disorder, dehydration, sepsis, UTI, pneumonia. cp 17:30 Data reviewed: vital signs, nurses notes, lab test result(s), EKG, radiologic studies, cp CT scan, plain films. 17:30 Test interpretation: by ED physician or midlevel provider: ECG, plain radiologic cp studies. Response to treatment: the patient's symptoms have mildly improved after treatment, and as a result, I will admit patient. 17:43 Physician consultation: Rui Williamson MD was contacted at 17:43, regarding admission, cp to the medical/surgical unit. patient's condition. 03 14:44 Order name: Basic Metabolic Panel cp 11/10 14:44 Order name: CBC with Diff cp 11/10 14:44 Order name: LFT's cp 11/10 14:44 Order name: Magnesium; Complete Time: 16:01 cp 11/10 14:44 Order name: NT PRO-BNP; Complete Time: 16:01 cp 11/10 14:44 Order name: PT-INR; Complete Time: 16:01 cp 11/10 14:44 Order name: Troponin (emerg Dept Use Only); Complete Time: 16:01 cp 11/10 14:44 Order name: Procalcitonin; Complete Time: 16:01 cp 11/10 14:44 Order name: Lactate; Complete Time: 16:01 cp 11/10 14:44 Order name: Urine Microscopic Only; Complete Time: 16:01 cp 11/10 16:01 Interpretation: Reviewed. cp 11/10 14:44 Order name: Blood Culture Adult (2) cp 11/10 14:44 Order name: Basic Metabolic Panel; Complete Time: 16:01 EDMS 11/10 17:01 Interpretation: Normal except: GFR 69. cp 11/10 14:44 Order name: CBC with Automated Diff; Complete Time: 16:01 EDMS 11/10 17:02 Interpretation: Normal except: VIANEY% 75.1. cp 11/10 14:44 Order name: Liver (Hepatic) Function; Complete Time: 16:01 EDMS 11/10 14:44 Order name: XRAY Chest (1 view); Complete Time: 16:01 cp 11/10 14:44 Order name: EKG; Complete Time: 14:45 cp 11/10 15:50 Order name: Urine Dipstick--Ancillary (enter results); Complete Time: 16:02 bd 11/10 16:02 Interpretation: Normal except: UBLD 3+; UPROT 3+; UESTR 3+. cp 11/10 16:02 Order name: Urine Culture EDCO 11/10 16:04 Order name: CT Head Brain wo Cont; Complete Time: 16:51 cp 11/10 16:52 Interpretation: Report reviewed. 11/10 17:02 Order name: Influenza Screen (a \T\ B) 11/10 18:59 Order name: Regular EDCO 11/10 18:59 Order name: Basic Metabolic Panel EDCO 11/10 18:59 Order name: Basic Metabolic Panel EDCO 11/10 18:59 Order name: CBC with Automated Diff EDCO 11/10 18:59 Order name: CBC with Automated Diff EDCO 11/10 18:59 Order name: Troponin I EDCO 11/10 18:59 Order name: Troponin I EDCO 11/10 18:59 Order name: Troponin I EDCO 11/10 14:44 Order name: Cardiac monitoring; Complete Time: 14:46 cp 11/10 14:44 Order name: EKG - Nurse/Tech; Complete Time: 15:07 cp 11/10 14:44 Order name: IV Saline Lock; Complete Time: 15:06 cp 11/10 14:44 Order name: Labs collected and sent; Complete Time: 15:06 cp 11/10 14:44 Order name: O2 Per Protocol; Complete Time: 14:46 cp 11/10 14:44 Order name: O2 Sat Monitoring; Complete Time: 14:45 cp 11/10 14:44 Order name: Urine Dipstick-Ancillary (obtain specimen); Complete Time: 15:51 cp Administered Medications: 16:07 Drug: NS 0.9% 500 ml Route: IV; Rate: bolus; Site: left antecubital; hj 17:43 Drug: Rocephin - (cefTRIAXone) 1 grams Route: IVPB; Infused Over: 30 mins; Site: right hj antecubital; 17:53 Follow up: IV Status: Completed infusion hj Disposition: 11/10/18 18:34 Hospitalization ordered by Rui Williamson for Inpatient Admission. Preliminary diagnosis are Altered mental status, unspecified, Other sepsis, Weakness - general, Urinary tract infection, site not specified. - Bed requested for Telemetry/MedSurg (Inpatient). - Status is Inpatient Admission. rr5 - Condition is Stable. - Problem is new. - Symptoms have improved. UTI on Admission? Yes Addendum: 11/14/2018 07:36 Co-signature as Attending Physician, Cali Abbott MD. r n Signatures: Dispatcher [employer] EDMS Cali Abbott MD MD rn Calderon, Audri RN RN aa5 Manpreet Snyder RN RN hj Deejay Woods PA PA cp Fitzgerald, Diane, RN RN df Christian Olivier RN RN rr5 Corrections: (The following items were deleted from the chart) 11/10 20:53 18:34 Hospitalization Ordered by Rui Williamson MD for Inpatient Admission. Preliminary df diagnosis is Altered mental status, unspecified; Other sepsis; Weakness - general; Urinary tract infection, site not specified. Bed requested for Telemetry/MedSurg (Inpatient). Status is Inpatient Admission. Condition is Stable. Problem is new. Symptoms have improved. UTI on Admission? Yes. cp 22:40 20:53 11/10/2018 18:34 Hospitalization Ordered by Rui Williamson MD for Inpatient rr5 Admission. Preliminary diagnosis is Altered mental status, unspecified; Other sepsis; Weakness - general; Urinary tract infection, site not specified. Bed requested for Telemetry/MedSurg (Inpatient). Status is Inpatient Admission. Condition is Stable. Problem is new. Symptoms have improved. UTI on Admission? Yes. df
[2018-11-10] MEDS ORDERED: ONDANSETRON 4 MG/2 ML VIAL IV PRN (18:54)
[2018-11-10] MEDS: NA CHLORIDE 0.9% 1,000 ML IV SCH (23:07)
[2018-11-10] MEDS: ACETAMINOPHEN 500 MG TAB PO PRN (23:20)
[2018-11-11 01:52] VITALS: BMI 22.7
[2018-11-11 05:41] LABS: Absolute Lymphocytes (CBC) 1.9 K/uL (0.7-4.9); Absolute Monocytes 0.6 K/uL (0.1-1.3); Absolute Neutrophil 4.5 K/uL (1.8-8.0); Basophils % 1.1 % (0-1.3); Eosinophils % 4.5 % (0-4.4); Hematocrit 36.7 % (39.6-49.0); Lymphocytes % 26.1 % (15.3-44.8); MPV 8.5 fL (7.6-11.3); Monocytes % 8.1 % (3.3-12.3); RBC Red Blood Cell Count 3.98 M/uL (4.33-5.43)
[2018-11-11 06:02] LABS: Potassium 3.5 mmol/L (3.5-5.1)
[2018-11-11] MEDS: CEFTRIAXONE/SWI 1gm 1 GM/10 ML SYR IV SCH ×2 (08:26→20:51)
[2018-11-11] MEDS: ENOXAPARIN 40 MG/0.4 ML SQ SCH (08:26)
[2018-11-11] MEDS: NA CHLORIDE 0.9% 1,000 ML IV SCH ×2 (08:26→21:00)
[2018-11-11] MEDS ORDERED: CEFTRIAXONE 1 GM/NS 50 ML 1 GM/50 ML BAG IV SCH (09:00)
[2018-11-11] MEDS ORDERED: ALBUTEROL INHALER 60 PUFF/8 GM IH SCH (10:30)
--- NOTE | 2018-11-11 16:08 | CON ---
Mr. Silverio has longstanding bradycardia. He also has Parkinson disease and orthostatic hypotension , and I am asked to see him because he has been in the hospital for a few days. He had a TURP surger y, now he has a bladder infection. He is getting antibiotics and while under observation he has freq uent times when his heart rate is in the 30s. There were no pauses over 2 seconds. It is not really an indication for a pacemaker, but it does make us want to at least check thyroids and continue to m onitor him. I will look in on him every day, but at this point, it is not an indication for a pacema ker. LYNNE/CIRO Voice ID: [id number] Report ID: [id number]
[2018-11-11] MEDS: ATORVASTATIN 10 MG TAB PO SCH (17:07)
[2018-11-11] MEDS: MIRTAZAPINE 15 MG TAB PO SCH (17:07)
--- NOTE | 2018-11-11 18:15 | CON ---
Chief Complaint: The patient had fevers on admission, change in altered mental status who came to [facility] emergency room where he had a workup that did not reveal anything significant except for dirty urin e. He has a Mcgill catheter in place. He was admitted overnight, and was realized he had bradycardia . Cardiology has been consulted for this. Recently, he had a TURP done on October 29 by me, total TURP. He is unable to void. I would like another voiding trial later on in the month. Past Medical History: Hypertension, BPH, COPD, hyperlipidemia, mixed anxiety, no suicidal ideation, hyperlipidemia, Parkinson disease, and B12 deficiency. Social History: No smoking. No alcohol use. Family History: Noncontributory. Medications: Reviewed in the chart. I stopped his Flomax. Physical Examination: Vital Signs: Temperature 97, pulse rate 50, respiratory rate 18, BP 136/68, sats 98%. HEENT: Atraumatic, normocephalic. General: He is awake, alert, speaking. is present. He has O2 nasal cannula. Heart: S1, S2. Chest: Clear. Abdomen: Soft, nontender. : Mcgill draining dark colored urine. No significant hematuria. Laboratory Data: Urine culture was 100,000 CFU that may be a mixed abby. His nitrites were negativ e, leukocyte esterase positive. Assessment: Fever of unknown origin. Doubt this urinary tract infection most likely of a dirty urin e from catheter. His white count is normal and nitrite was negative in the UA, however, we will cont inue to give him some antibiotics now to see if he gets better, not really sure what the source is. He is on ceftriaxone 1 g q.12 hours and urine culture is almost back. As far as his bradycardia is c oncerned, Cardiology is investigating that and the patient may need a pacemaker. KALEY/CIRO Voice ID: [id number] Report ID: [id number]
[2018-11-11] MEDS: ACETAMINOPHEN 500 MG TAB PO PRN (20:59)
[2018-11-11] MEDS ORDERED: TAFLUPROST EACH EAR SCH (21:00)
[2018-11-11] MEDS ORDERED: TAMSULOSIN 0.4 MG SR CAP PO SCH (21:00)
--- NOTE | 2018-11-11 23:39 | HP ---
Date of Admission: 11/10/2018 History Of Present Illness: A 77-year-old male, who had a prostate surgery by Dr. Lyn to remove th e prostate for BPH about 2 weeks ago. However, yesterday he was noted to be confused, fatigued and t ired. His brought him to the emergency room. He had altered mental status and he was found to have sepsis from urine tract infection and he was admitted for that. Review of Systems: Cardiovascular: No complaints. Respiratory: No complaints. Skeletomuscular: No complaint. Genitourinary: As above. Gastrointestinal: No complaint. Neurological: Initially altered mental status, now he is not. Past Medical History: 1.As above, status post TURP surgery recently. 2.COPD. 3.Parkinson. 4.Hypertension. 5.Hyperlipidemia. Social History: Stopped smoking. Denies alcohol or drug abuse. Family History: Noncontributing. Medications: Include alprazolam 0.5 mg p.o. daily p.r.n., Sinemet 25/100 one p.o. daily, citalopram 30 mg p.o. daily, Florinef 0.4 mg p.o. daily, multivitamin, albuterol 2 puffs q.i.d. p.r.n., Remeron 30 mg p.o. daily, omeprazole 20 mg p.o. daily, pravastatin 40 mg p.o. daily, . The patient was on tamsulosin, but that was stopped after surgery. Allergies: NO KNOWN DRUG ALLERGIES. Physical Examination: Vital Signs: Blood pressure 136/70, pulse 50, temperature 97. Heart: Regular rate and rhythm. Chest: Clear to auscultation. Abdomen: Soft, nontender. No hepatosplenomegaly. Bowel sounds are normoactive. Extremities: No edema. No cyanosis. Peripheral pulses are felt. Neurological: Initially, the patient was confused as per emergency room. However, at the time of eing the patient today, he is alert and oriented x4. He knew my name, knew he was in the hospital an d answered questions properly. He is grossly intact. Nonfocal. Laboratory Data: CBC; white cell count 7.4, hemoglobin 12.3, hematocrit 36.7, and platelets 237. Ch emistry noted BUN 19, creatinine 1.26, prolactin less than 0.05. Urinalysis, white cells 20-50, leuk ocyte esterase 3+. Assessment And Plan: 1.Altered mental status secondary to bacteremia likely from urine tract infection. The patient is b eing admitted. Put on ceftriaxone IV and gentle hydration and that is resolving and controlled. 2.While the patient is in the hospital on telemetry, his pulse have dropped down to 36, bradycardia. I am going to go ahead and consult Cardiology on that. The patient's head CT and chest x-ray were nonrevealing for any acute pathology. Blood cultures are pending. We will continue current treatmen t, pending Ortho and Cardiology input. Continue the rest of his home medicines. Look orders for det ails. MFS/MODL Voice ID: [id number]
[2018-11-12] MEDS: ACETAMINOPHEN 500 MG TAB PO PRN (02:14)
[2018-11-12 06:01] LABS: Absolute Lymphocytes (CBC) 1.8 K/uL (0.7-4.9); Absolute Monocytes 0.6 K/uL (0.1-1.3); Absolute Neutrophil 6.6 K/uL (1.8-8.0); Basophils % 1.2 % (0-1.3); Eosinophils % 4.3 % (0-4.4); Hematocrit 37.1 % (39.6-49.0); MPV 8.6 fL (7.6-11.3); Monocytes % 6.4 % (3.3-12.3); RBC Red Blood Cell Count 4.02 M/uL (4.33-5.43)
[2018-11-12 06:13] LABS: Potassium 3.8 mmol/L (3.5-5.1)
[2018-11-12] MEDS ORDERED: PANTOPRAZOLE 40MG TABLET PO SCH (06:30)
--- NOTE | 2018-11-12 08:46 | CON ---
History Of Present Illness: He is a pleasant 77-year-old patient of mine. I saw him back in June 2018. He grew Enterobacter, and was asymptomatic. He was sensitive to Bactrim, Rocephin, Levaquin, and Cipro. He comes in with fevers and chills, and he has been placed on IV Rocephin. It seems to be working well. . We will go ahead and send him home on either Bactrim, Levaquin, or Cip ro for another at least 10 to 14 days. His PSA was 0.68 back in June 2018. He also had a history of E coli years ago, negative CT scan back in 2013, and cystoscopy that shows a 2.5 cm prostatic ure thral length with a small median lobe. Past Medical History: None. Medications: Current medications include Tylenol, Ventolin inhaler, Lipitor, Rocephin, Lovenox, Dorothy rianna, Zofran, Protonix. At home, he takes Colace, omeprazole, alprazolam, Ventolin inhaler, Pravachol , multivitamin, Remeron, Florinef, Celexa, carbidopa/levodopa, and Flomax. Allergies: CLONIDINE CAUSES HIVES. FENOFIBRATE CAUSES HIVES. HYDROCODONE; NAUSEA, VOMITING. DEMER OL; NAUSEA, VOMITING. MORPHINE; NAUSEA, VOMITING. Social History: Noncontributory. Family History: Noncontributory. Review of Systems: A 10-point review of system otherwise negative. Physical Examination: Vital Signs: 98.1, 47, 18, 139/66, 94% sat. HEENT: Atraumatic, normocephalic. Chest: Clear. Heart: Regular rate and rhythm. Abdomen: Soft, nontender. : Both testicles are descended. Phallus normal. HEAVENLY: Benign appearing prostate. No signs of acute prostatitis. No tenderness. Extremities: Normal range of motion. Laboratory Data: White count is normal at 9.5, H and H is 4.7 and 37.1, platelet count 237. Coags n ormal. Chemistry; sodium 144, potassium 3.8, chloride 110, carbon dioxide 28, BUN 19, creatinine 0.9 7, GFR estimated 75, glucose 126, calcium 7.4. UA shows 20 to 50 bacteria, nitrite negative, esteras e 3+, and urine culture, as I mentioned, that he had back in June, grew Enterobacter sensitive to Bactrim, Rocephin, Levaquin, and Cipro. Assessment: Urinary tract infection. The patient is stable now. Doing much better. He is ready to go home on either Bactrim, Levaquin, or Cipro for another 10 to 14 days. Follow up p.rmohinder ROCHE/CIRO Voice ID: [id number] Report ID: [id number]
--- NOTE | 2018-11-12 08:54 | PN ---
Subjective: The patient is resting. Urine looks okay. Urine culture not growing anything significa nt. Objective: Vital signs: 98.1, 47, 18, 139/66, 94% sats. Assessment: Possible urinary tract infection, most likely contaminant, status post transurethral res ection of prostate. Credit Collections Rep is evaluating his bradycardia for possible pacemaker. We will cont inue management. KALEY/CIRO Voice ID: [id number] Report ID: [id number]
[2018-11-12] MEDS ORDERED: RASAGILINE MESYLATE 1 MG PO SCH (09:00)
[2018-11-12] MEDS: CEFTRIAXONE/SWI 1gm 1 GM/10 ML SYR IV SCH (09:20)
[2018-11-12] MEDS: ENOXAPARIN 40 MG/0.4 ML SQ SCH (09:20)
--- NOTE | 2018-11-12 09:54 | PN ---
Mr. Silverio remains bradycardic. Heart rate in the 30s when sleeping. Again, he does not meet rafaela alberto for a pacemaker. LYNNE/MODL Voice ID: [id number] Report ID: [id number]
[2018-11-12] MEDS: NA CHLORIDE 0.9% 1,000 ML IV SCH (10:08)
--- NOTE | 2018-11-12 10:30 | EKG ---
Test Date: 2018-11-10 Test Time: 15:08:44 Manager Green: JESSIKA MEASUREMENT RESULTS: Intervals: Rate: 51 DE: 204 QRSD: 90 QT: 456 QTc: 420 [place]: P: 56 DE: 204 QRS: 24 T: 50 INTERPRETIVE STATEMENTS: Sinus bradycardia with sinus arrhythmia Otherwise normal ECG Compared to ECG 10/16/2018 12:23:15 Sinus rhythm no longer present Atrial premature complex(es) no longer present Aberrant conduction of supraventricular beat(s) no longer present Electronically Signed On 11-11-18 08:10:10 CDT by Chidi Fountain
[2018-11-12] MEDS ORDERED: ALBUTEROL INHALER 60 PUFF/8 GM IH PRN (11:00)
[2018-11-12] MEDS ORDERED: AMLODIPINE 5 MG TAB PO SCH (13:00)
[2018-11-12 13:42] VITALS: O2SAT 94
[2018-11-12 17:44] VITALS: BP 158/77; TEMP 97.3
[2018-11-12] MEDS: ATORVASTATIN 10 MG TAB PO SCH (18:00)
[2018-11-12] MEDS: MIRTAZAPINE 15 MG TAB PO SCH (18:00)
== END 2018-11-12 18:20 | disposition home or self-care (01) | DRG 690 ==
LOC: ER 14:10 → ERHOLD 18:52 → 2ND 22:22
PROVIDERS: ADMIT Internal Medicine; ATTEND Internal Medicine
DX: N39.0 Urinary tract infection, site not specified (principal); J44.9 Chronic obstructive pulmonary disease, unspecified; E78.5 Hyperlipidemia, unspecified; I10 Essential (primary) hypertension; R00.1 Bradycardia, unspecified; F41.3 Other mixed anxiety disorders; G20 Parkinson's disease; E53.8 Deficiency of other specified B group vitamins; I95.1 Orthostatic hypotension
CPT/HCPCS: 36415; 70450; 71045; 80048; 80076; 81003; 81015; 83605; 83735; 83880; 84145; 84443; 84484; 85025; 85610; 87040; 87077; 87086; 87088; 87186; 87804; 93005; 94760; 96374; 99285; J0696; J1650; J7030

== ENCOUNTER 2018-11-21 06:00 | Emergency (ER) | payer OTHER ==
[2018-11-21 07:32] LABS: Absolute Lymphocytes (CBC) 0.8 K/uL (0.7-4.9); Absolute Monocytes 0.6 K/uL (0.1-1.3); Absolute Neutrophil 8.2 K/uL (1.8-8.0); Basophils % 0.9 % (0-1.3); Eosinophils % 2.4 % (0-4.4); Hematocrit 39.8 % (39.6-49.0); Lymphocytes % 7.9 % (15.3-44.8); MPV 8.2 fL (7.6-11.3); Monocytes % 5.7 % (3.3-12.3); RBC Red Blood Cell Count 4.34 M/uL (4.33-5.43)
[2018-11-21 07:53] LABS: Potassium 3.9 mmol/L (3.5-5.1)
--- NOTE | 2018-11-21 08:22 | ER ---
Nurse's Notes [facility] Name: Taz Silverio Age: 77 yrs Sex: Male : 1940 Arrival Date: 11/21/2018 Time: 05:59 Bed 4 Private MD: Diagnosis: Fall from bed Presentation: 11/21 06:00 Presenting complaint: EMS states: called for lift assist for fall from bed to floor. pt ak1 with page in place, dx UTI. pt with increased delusions and confusion. pt refused transfer for over an hour before EMS assessed hypotension 58/38 while standing. pt stated pt with prostate sx 10/2018 and has been "bed ridden" since. pt stated home health has come to the home once. pt stated they will be moving into [facility] this week. Transition of care: patient was not received from another setting of care. Onset of symptoms was November 21, 2018. Risk Assessment: Do you want to hurt yourself or someone else? Patient reports no desire to harm self or others. Care prior to arrival: IV initiated. 22 GA, in the right forearm. 06:00 Method Of Arrival: EMS: [facility] ak1 06:00 Acuity: USKHJINDER 3 ak1 07:11 Initial Sepsis Screen: Does the patient meet any 2 criteria? No. Patient's initial la1 sepsis screen is negative. Does the patient have a suspected source of infection? No. Patient's initial sepsis screen is negative. Triage Assessment: 06:06 General: Appears in no apparent distress. Behavior is calm, quiet. ak1 Historical: - Allergies: 06:06 No Known Allergies; ak1 - Home Meds: 06:06 Advair Diskus 250-50 mcg/dose Inhl dsdv 1 puff 2 times per day [Active]; albuterol ak1 sulfate 1.25 mg/3 mL Inhl nebu 3 mL 3 times per day [Active]; alprazolam 0.5 mg Oral tab 1 tab twice a day [Active]; aspirin 81 mg Oral TbEC 1 tab once daily [Active]; Azilect 1 mg Oral tab 1 tab once daily [Active]; carbidopa-levodopa 25-100 mg Oral TbER 1 tab 4 times per day [Active]; citalopram 40 mg tab 1 tab once daily [Active]; fludrocortisone 0.1 mg Oral tab 1 tab once daily [Active]; mirtazapine 30 mg Oral TbDL 1 tab once daily [Active]; montelukast 10 mg Oral tab 1 tab once daily [Active]; omeprazole 20 mg Oral cpDR 1 cap once daily [Active]; pravastatin 40 mg Oral tab 1 tab once daily [Active]; tamsulosin 0.4 mg Oral cp24 1 cap once daily [Active]; Vitamin B-12 2,000 mcg Oral TbER [Active]; - PMHx: 06:06 Asthma; Hyperlipidemia; Hypertension; Parkinsons; Dementia; UTI; ak1 - PSHx: 06:06 TURP; ak1 - Immunization history:: Adult Immunizations unknown. - Social history:: Smoking status: unknown. - Ebola Screening: : No symptoms or risks identified at this time. Screenin:08 Abuse screen: Denies threats or abuse. Denies injuries from another. Nutritional ak1 screening: No deficits noted. Tuberculosis screening: No symptoms or risk factors identified. Fall Risk Fall in past 12 months (25 points). Gait- Normal/Bed Rest/Wheelchair (0 pts). Assessment: 07:11 General: Appears in no apparent distress. Behavior is calm, cooperative. Neuro: Level la1 of Consciousness is awake, alert, obeys commands, Oriented to person, place, situation. Cardiovascular: Capillary refill < 3 seconds Patient's skin is warm and dry. Respiratory: Airway is patent Respiratory effort is even, unlabored, Respiratory pattern is regular, symmetrical. GI: No signs and/or symptoms were reported involving the gastrointestinal system. : Page in place to gravity drainage. 09:08 Reassessment: Patient appears in no apparent distress at this time. No changes from la1 previously documented assessment. Patient and/or family updated on plan of care and expected duration. Pain level reassessed. Patient is alert, oriented x 3, equal unlabored respirations, skin warm/dry/pink. Awaiting information from jeronimo darnell to determine if patient will be discharged from here to fpc to to home first. awaiting return call. Vital Signs: 06:06 BP 118 / 89; Pulse 59; Resp 18; Pulse Ox 94% on R/A; Weight 81.65 kg (R); Height 6 ft. ak1 2 in. (187.96 cm) (R); Pain 0/10; 07:12 BP 113 / 63; Pulse 49; Resp 16; Pulse Ox 96% on R/A; la1 09:08 BP 121 / 76; Pulse 59; Resp 18; Pulse Ox 94% on R/A; la1 06:06 Body Mass Index 23.11 (81.65 kg, 187.96 cm) ak1 ED Course: 05:59 Patient arrived in ED. ak1 06:04 Triage completed. ak1 06:06 Arm band placed on Patient placed in an exam room, on a stretcher, on cardiac cath technologist, ak1 on pulse oximetry, Patient notified of wait time. 06:08 Patient has correct armband on for positive identification. Bed in low position. Call ak1 light in reach. Side rails up X 1. ekg monitor on. Pulse ox on. NIBP on. 06:08 Maintain EMS IV. Dressing intact. Site clean \\T\\ dry. Gauge \\T\\ site: 22 right forearm. ak 1 06:14 Deejay Woods PA is PHCP. cp 06:14 Nii Calixto MD is Attending Physician. cp 07:11 Jose Norris, RN is Primary Nurse. la1 09:31 No provider procedures requiring assistance completed. IV discontinued, intact, ss bleeding controlled, No redness/swelling at site. Pressure dressing applied. Administered Medications: No medications were administered Outcome: 08:22 Discharge ordered by . cp 09:40 Discharged to fpc. Report called to Pat la1 09:40 Condition: stable 09:40 Discharge instructions given to family, EMS, Instructed on discharge instructions, follow up and referral plans. Demonstrated understanding of instructions, follow-up care. 09:40 Patient left the ED. la1 Signatures: Mechelle Mendez RN RN ss Jose Norris RN RN la1 Smiley Valladares RN RN ak1 Deejay Woods PA PA cp Corrections: (The following items were deleted from the chart) 09:39 09:08 BP 121 / 76; Pulse 59bpm; Resp 18bpm; Pulse Ox 98% RA; la1 la1
--- NOTE | 2018-11-21 08:22 | EDPHYS ---
Physician Documentation [facility] Name: Taz Silverio Age: 77 yrs Sex: Male : 1940 Arrival Date: 11/21/2018 Time: 05:59 Bed 4 Private MD: ED Physician Nii Calixto HPI: 11/21 06:45 This 77 yrs old Male presents to ER via EMS with complaints of fall from bed. cp 06:45 Onset: The symptoms/episode began/occurred last night. Associated injuries: The patient cp sustained no obvious injury. 06:45 EMS was called for lift assistance after patient fell out of bed. Blood pressure was cp low after being checked on scene. 06:45 Details of fall: The patient fell from seated position, off the edge of a bed. cp Historical: - Allergies: 06:06 No Known Allergies; ak1 - Home Meds: 06:06 Advair Diskus 250-50 mcg/dose Inhl dsdv 1 puff 2 times per day [Active]; albuterol ak1 sulfate 1.25 mg/3 mL Inhl nebu 3 mL 3 times per day [Active]; alprazolam 0.5 mg Oral tab 1 tab twice a day [Active]; aspirin 81 mg Oral TbEC 1 tab once daily [Active]; Azilect 1 mg Oral tab 1 tab once daily [Active]; carbidopa-levodopa 25-100 mg Oral TbER 1 tab 4 times per day [Active]; citalopram 40 mg tab 1 tab once daily [Active]; fludrocortisone 0.1 mg Oral tab 1 tab once daily [Active]; mirtazapine 30 mg Oral TbDL 1 tab once daily [Active]; montelukast 10 mg Oral tab 1 tab once daily [Active]; omeprazole 20 mg Oral cpDR 1 cap once daily [Active]; pravastatin 40 mg Oral tab 1 tab once daily [Active]; tamsulosin 0.4 mg Oral cp24 1 cap once daily [Active]; Vitamin B-12 2,000 mcg Oral TbER [Active]; - PMHx: 06:06 Asthma; Hyperlipidemia; Hypertension; Parkinsons; Dementia; UTI; ak1 - PSHx: 06:06 TURP; ak1 - Immunization history:: Adult Immunizations unknown. - Social history:: Smoking status: unknown. - Ebola Screening: : No symptoms or risks identified at this time. ROS: 06:50 Constitutional: Negative for fever. cp 06:50 Cardiovascular: Negative for chest pain. cp 06:50 Respiratory: Negative for cough, wheezing. 06:50 Abdomen/GI: Negative for vomiting, diarrhea, constipation. 06:50 Neuro: Negative for altered mental status, headache, loss of consciousness. 06:50 All other systems are negative. Exam: 06:42 ECG was reviewed by the Attending Physician. cp 06:55 Constitutional: The patient appears in no acute distress, alert, awake, cp non-diaphoretic, non-toxic, well developed, well nourished. 06:55 Head/Face: Normocephalic, atraumatic. cp 06:55 Eyes: Periorbital structures: appear normal, Pupils: equal, round, and reactive to light and accomodation, Extraocular movements: intact throughout, Conjunctiva: normal, no exudate, no injection, Sclera: no appreciated abnormality, Lids and lashes: appear normal, bilaterally. 06:55 ENT: External ear(s): are unremarkable, Ear canal(s): are normal, clear, TM's: bulging, is not appreciated, bilaterally, dullness, bilaterally, erythema, is not appreciated, bilaterally, Nose: is normal, Mouth: Lips: moist, Oral mucosa: moist, Posterior pharynx: is normal, airway is patent, no erythema, no exudate. 06:55 Neck: ROM/movement: is normal, is supple, without pain, no range of motions limitations, no meningismus, no nuchal rigidity. 06:55 Chest/axilla: Inspection: normal, Palpation: is normal, no crepitus, no tenderness. 06:55 Cardiovascular: Rate: bradycardic, Rhythm: regular, Edema: is not appreciated, JVD: is not appreciated. 06:55 Respiratory: the patient does not display signs of respiratory distress, Respirations: normal, no use of accessory muscles, no retractions, no splinting, no tachypnea, labored breathing, is not present, Breath sounds: are clear throughout, no decreased breath sounds, no stridor, no wheezing. 06:55 Abdomen/GI: Inspection: abdomen appears normal, Bowel sounds: active, all quadrants, Palpation: abdomen is soft and non-tender, in all quadrants. 06:55 Back: pain, is absent, ROM is normal. 06:55 Musculoskeletal/extremity: Exam is negative for bony tenderness, deformity, injury. 06:55 Skin: no rash present. 06:55 Neuro: Orientation: to person, place, Mentation: able to follow commands, Motor: moves all fours, strength is 5/5 in the right arm and left arm, strength is 4/5 in the right leg and left leg. Vital Signs: 06:06 BP 118 / 89; Pulse 59; Resp 18; Pulse Ox 94% on R/A; Weight 81.65 kg (R); Height 6 ft. ak1 2 in. (187.96 cm) (R); Pain 0/10; 07:12 BP 113 / 63; Pulse 49; Resp 16; Pulse Ox 96% on R/A; la1 09:08 BP 121 / 76; Pulse 59; Resp 18; Pulse Ox 94% on R/A; la1 06:06 Body Mass Index 23.11 (81.65 kg, 187.96 cm) ak1 MDM: 06:14 Patient medically screened. cp 07:00 Differential diagnosis: closed head injury, contusion, fracture, multiple trauma, cp sepsis. 08:20 Data reviewed: vital signs, nurses notes, lab test result(s), EKG, and as a result, I cp will discharge patient. 08:20 Test interpretation: by ED physician or midlevel provider: ECG. Counseling: I had a cp detailed discussion with the patient and/or guardian regarding: the historical points, exam findings, and any diagnostic results supporting the discharge/admit diagnosis, lab results, to return to the emergency department if symptoms worsen or persist or if there are any questions or concerns that arise at home. Response to treatment: the patient's symptoms have markedly improved after treatment, and as a result, I will discharge patient. 11/21 06:30 Order name: CBC with Diff; Complete Time: 07:57 cp 11/21 07:57 Interpretation: Normal except: HGB 13.5; VIANEY% 83.1; LYM% 7.9; NEUT A 8.2. cp 11/21 06:30 Order name: BMP; Complete Time: 07:57 cp 11/21 07:57 Interpretation: Normal except: GLUC 109; GFR 57; CA 7.9. cp 11/21 06:30 Order name: EKG; Complete Time: 06:31 cp 11/21 06:30 Order name: EKG - Nurse/Tech; Complete Time: 06:45 cp EC:42 Rate is 56 beats/min. Rhythm is regular. QRS interval is normal. QT interval is normal. cp T waves are Inverted in lead aVR. Interpreted by me. Reviewed by me. Administered Medications: No medications were administered Disposition: 08:30 Chart complete. cp 11/22 07:06 Co-signature as Attending Physician, Nii Calixto MD I agree with the assessment and tw4 plan of care. Disposition: 11/21/18 08:22 Discharged to Home. Impression: Fall from bed. - Condition is Stable. - Discharge Instructions: Fall Prevention in the Home. - Medication Reconciliation Form, Thank You Letter, Antibiotic Education, Prescription Opioid Use form. - Follow up: Emergency Department; When: As needed; Reason: Worsening of condition. - Problem is new. - Symptoms have improved. Addendum: 12/04/2018 08:05 Addendum: Additional Diagnosis: Encounter for screening unspecified. c p Signatures: Dispatcher [employer] EDMS Jose Norris RN RN la1 Smiley Valladares RN RN ak1 Deejay Woods PA PA cp Nii Calixto MD MD tw4 Corrections: (The following items were deleted from the chart) 11/21 07:02 07:00 Details of fall: The patient fell from seated position, off the edge of a bed, cp cp 07:57 07:57 Normal except: GLUC 109; GFR 57. cp cp 09:40 08:22 11/21/2018 08:22 Discharged to Home. Impression: Fall from bed. Condition is la1 Stable. Forms are Medication Reconciliation Form, Thank You Letter, Antibiotic Education, Prescription Opioid Use. Follow up: Emergency Department; When: As needed; Reason: Worsening of condition. Problem is new. Symptoms have improved. cp
[2018-11-21 09:46] VITALS: BP 121/76; O2SAT 94
== END 2018-11-21 09:40 | disposition home or self-care (01) ==
LOC: ER 06:00
DX: Z13.9 Encounter for screening, unspecified (principal); W06.XXXA Fall from bed, initial encounter; Y93.89 Activity, other specified; Y92.9 Unspecified place or not applicable; Z79.82 Long term (current) use of aspirin; I10 Essential (primary) hypertension; J45.909 Unspecified asthma, uncomplicated; G20 Parkinson's disease; F02.80 Dementia in other diseases classified elsewhere, unspecified severity, without behavioral disturbance, psychotic disturbance, mood disturbance, and anxiety; E78.5 Hyperlipidemia, unspecified
CPT/HCPCS: 36415; 80048; 85025; 93005; 99284

== ENCOUNTER 2019-04-10 14:39 | Emergency (ER) | payer OTHER ==
--- NOTE | 2019-04-10 15:32 | RAD REPORT ---
EXAM DESCRIPTION: RAD - Chest Single View - 04/10/2019 3:12 pm CLINICAL HISTORY: weakness Chest pain. COMPARISON: Chest Single View dated 11/10/2018; Chest Single View dated 10/16/2018; Chest Single View dated 07/31/2018; Chest Pa And Lat (2 Views) dated 07/28/2018 FINDINGS: Portable technique limits examination quality. The lungs are grossly clear. The heart is mildly prominent size. No displaced fractures. IMPRESSION: No acute intrathoracic process suspected.
[2019-04-10 15:35] LABS: Absolute Lymphocytes (CBC) 1.2 K/uL (0.7-4.9); Basophils % 1.3 % (0-1.3); Hematocrit 38.4 % (39.6-49.0); Lymphocytes % 15.9 % (15.3-44.8); MPV 8.9 fL (7.6-11.3); Protime INR 1.04; RBC Red Blood Cell Count 4.17 M/uL (4.33-5.43)
[2019-04-10] MEDS ORDERED: NA CHLORIDE 0.9% 1,000 ML ONE (15:47)
--- NOTE | 2019-04-10 15:49 | RAD REPORT ---
EXAM DESCRIPTION: CT - Head Brain Wo Cont - 04/10/2019 3:41 pm CLINICAL HISTORY: SYNCOPE Headache, drowsiness COMPARISON: Head Brain Wo Cont dated 11/10/2018 TECHNIQUE: All CT scans are performed using dose optimization technique as appropriate and may inclu de automated exposure control or mA/KV adjustment according to patient size. FINDINGS: No intracranial hemorrhage, hydrocephalus or extra-axial fluid collection.Mild generalized brain atrophy is present with moderate periventricular and deep white matter chronic microvascular i schemic changes.No areas of brain edema or evidence of midline shift. Fluid level is seen in the right maxillary antrum. The paranasal sinuses and mastoids are otherwise c lear. The calvarium is intact. IMPRESSION: No acute intracranial abnormality. Mild right maxillary sinus fluid.
[2019-04-10 15:52] LABS: BUN Blood Urea Nitrogen 20 mg/dL (7-18); Bicarbonate 31 mmol/L (21-32); Glucose Level 98 mg/dL (74-106); Potassium 3.1 mmol/L (3.5-5.1); Sodium Level 142 mmol/L (136-145)
[2019-04-10 15:53] LABS: ALT/SGPT 12 U/L (12-78); AST/SGOT 23 U/L (15-37); Albumin 3.4 g/dL (3.4-5.0); Alkaline Phosphatase 92 U/L (45-117); Bilirubin Direct 0.1 mg/dL (0-0.2); Bilirubin Total 0.5 mg/dL (0.2-1.0); Magnesium 2.2 mg/dL (1.8-2.4); NT PRO-BNP 214 pg/mL (<450); Protein, Total 6.9 g/dL (6.4-8.2); Troponin (Emerg Dept Use Only) < 0.02 ng/mL (0.0-0.045)
[2019-04-10] MEDS ORDERED: POTASSIUM CL SA 10 MEQ TAB PO ONE (16:31)
--- NOTE | 2019-04-10 17:49 | ER ---
Nurse's Notes [facility] Name: Taz Silverio Age: 78 yrs Sex: Male : 1940 Arrival Date: 04/10/2019 Time: 14:49 Bed 8 Private MD: Diagnosis: Syncope and collapse;Hypokalemia Presentation: 04/10 14:51 Presenting complaint: EMS states: pt has been feeling dizzy all morning, fell from iw standing and hit head, denies LOC, not on blood thinners, no obvious injury, pt denies pain, states he feels dizzy and weak when standing. EMS reports pt is orthostatic positive, pt has hx of Parkinson's. Care prior to arrival: Medication(s) given: Normal saline infusion, 500 mL, IV initiated. 20 GA, in the left antecubital area. Mechanism of Injury: Fall from standing position. Trauma event details: Injury occurred in the [facility]. 14:51 Acuity: SUKHJINDER 3 iw 14:51 Method Of Arrival: EMS: [facility] iw 14:55 Transition of care: [facility]. Onset of symptoms was April 10, 2019. iw Risk Assessment: Do you want to hurt yourself or someone else? Patient reports no desire to harm self or others. Initial Sepsis Screen: Does the patient meet any 2 criteria? No. Patient's initial sepsis screen is negative. Does the patient have a suspected source of infection? No. Patient's initial sepsis screen is negative. Trauma Activation: Not Applicable Physician: ED Physician; Name: ; Notified At: ; Arrived At: Physician: General Surgeon; Name: ; Notified At: ; Arrived At: Physician: Radiology; Name: ; Notified At: ; Arrived At: Physician: Respiratory; Name: ; Notified At: ; Arrived At: Physician: Lab; Name: ; Notified At: ; Arrived At: Historical: - Allergies: 14:57 No Known Allergies; iw - Home Meds: 14:57 Advair Diskus 250-50 mcg/dose Inhl dsdv 1 puff 2 times per day [Active]; albuterol iw sulfate 1.25 mg/3 mL Inhl nebu 3 mL 3 times per day [Active]; alprazolam 0.5 mg Oral tab 1 tab twice a day [Active]; aspirin 81 mg Oral TbEC 1 tab once daily [Active]; Azilect 1 mg Oral tab 1 tab once daily [Active]; carbidopa-levodopa 25-100 mg Oral TbER 1 tab 4 times per day [Active]; fludrocortisone 0.1 mg Oral tab 1 tab once daily [Active]; mirtazapine 30 mg Oral TbDL 1 tab once daily [Active]; montelukast 10 mg Oral tab 1 tab once daily [Active]; omeprazole 20 mg Oral cpDR 1 cap once daily [Active]; pravastatin 40 mg Oral tab 1 tab once daily [Active]; tamsulosin 0.4 mg Oral cp24 1 cap once daily [Active]; Vitamin B-12 2,000 mcg Oral TbER [Active]; 15:05 citalopram 20 mg oral tab once daily [Active]; donepezil 5 mg oral TbDL 1 tab once iw daily [Active]; gabapentin 300 mg oral cap nightly [Active]; midodrine 5 mg oral tab 1 tabs 3 times per day [Active]; - PMHx: 14:57 Asthma; Dementia; Hyperlipidemia; Hypertension; Parkinsons; UTI; iw - PSHx: 14:57 TURP; iw - Immunization history:: Adult Immunizations up to date. - Social history:: Smoking status: Patient/guardian denies using tobacco. - Ebola Screening: : Patient negative for fever greater than or equal to 101.5 degrees Fahrenheit, and additional compatible Ebola Virus Disease symptoms Patient denies exposure to infectious person Patient denies travel to an Ebola-affected area in the 21 days before illness onset No symptoms or risks identified at this time. Screenin:15 Abuse screen: No signs of abuse noted. Nutritional screening: No deficits noted. aa5 Tuberculosis screening: No symptoms or risk factors identified. Fall Risk Fall in past 12 months (25 points). Secondary diagnosis (15 points) dementia, IV access (20 points). Mental Status- Overestimates/Forgets Limitations (15 pts.). Total Arrieta Fall Scale indicates High Risk Score (45 or more points). Fall prevention measures have been instituted. Side Rails Up X 2 Placed Close to Nursing Station Family Present and informed to notify staff if the need to leave the bedside. Assessment: 15:15 General: Appears comfortable, Behavior is calm, cooperative. Pain: Complains of pain in aa5 left shoulder Pain does not radiate. Quality of pain is described as "it's just sore" Unable to use pain scale. FLACC scale score is 2 out of 10. Neuro: Level of Consciousness is awake, alert, obeys commands, Oriented to person, place, time, situation, Economics Instructor are weak bilaterally Moves all extremities. Speech is normal, Facial symmetry appears normal, Pupils are PERRLA, Reports dizziness, weakness. Cardiovascular: Heart tones S1 S2 present Rhythm is regular. Respiratory: Airway is patent Respiratory effort is even, unlabored, Respiratory pattern is regular, symmetrical, Breath sounds are clear bilaterally. Denies cough, shortness of breath. GI: Abdomen is round non-distended, Bowel sounds present X 4 quads. Abd is soft and non tender X 4 quads. Patient currently denies diarrhea, nausea, vomiting. : No signs and/or symptoms were reported regarding the genitourinary system. EENT: No signs and/or symptoms were reported regarding the EENT system. Derm: Skin is pink, warm \\T\\ dry. Musculoskeletal: Range of motion: intact in all extremities. 15:35 Reassessment: Pt taken to CT via stretcher . aa5 16:04 Reassessment: Patient is alert, oriented x 3, equal unlabored respirations, skin aa5 warm/dry/pink. Pt back from CT scan. NS bolus infusing now. Pt sitting up in bed, bed remains in low position, side rails x 2, call calderón within reach. Pt's remains at bedside. . 17:30 Reassessment: Patient is alert, oriented x 3, equal unlabored respirations, skin aa5 warm/dry/pink. Cardiovascular: Rhythm is sinus bradycardia. 17:40 Reassessment: Patient is alert, oriented x 3, equal unlabored respirations, skin aa5 warm/dry/pink. Patient denies pain at this time. 18:15 Reassessment: Patient is alert, oriented x 3, equal unlabored respirations, skin aa5 warm/dry/pink. Patient denies pain at this time. Vital Signs: 14:58 BP 174 / 86; Pulse 53; Resp 16 S; Pulse Ox 96% on R/A; Weight 82.55 kg; Height 5 ft. 11 iw in. (180.34 cm); Pain 0/10; 15:25 BP 180 / 88 Supine; Pulse 56; aa5 15:25 Temp 98.0(TE); aa5 15:27 BP 167 / 83 Sitting; Pulse 57; aa5 15:29 BP 85 / 54 Standing; Pulse 63; aa5 16:30 BP 140 / 76; Pulse 53; Resp 16 S; Temp 98.1(O); Pulse Ox 99% on R/A; Pain 0/10; aa5 17:30 aa5 17:36 BP 163 / 83 Supine; Pulse 55; aa5 17:38 BP 148 / 78 Sitting; Pulse 55; Resp 15; Pulse Ox 99% ; aa5 17:40 BP 115 / 64 Standing; Pulse 60; aa5 18:10 BP 164 / 79; Pulse 58; Resp 18 S; Temp 98.0(TE); Pulse Ox 96% ; aa5 14:58 Body Mass Index 25.38 (82.55 kg, 180.34 cm) iw 15:29 Pt c/o dizziness when standing. LIME HIDE INSPECTOR notified of orthostatics. aa5 17:30 HR fluctuating between 47bpm and 52bpm, LIME HIDE INSPECTOR was notified. aa5 17:40 LIME HIDE INSPECTOR notified of orhostatic VS. Pt reports dizziness has improved while standing, pt aa5 states "I only feel a little dizzy when I stand now" ED Course: 14:49 Patient arrived in ED. iw 14:55 Triage completed. iw 14:58 Arm band placed on. iw 14:58 Maintain EMS IV. Dressing intact. Good blood return noted. Site clean \\T\\ dry. Gauge \\T\\ iw site: 20 LAC. 14:59 Yokasta Zambrano FNP-C is [facility]. kb 14:59 Deejay Buckley MD is Attending Physician. kb 14:59 Rut Saha, DORON is Primary Nurse. aa5 15:10 EKG done, by ED staff, reviewed by Yokasta OLVERA. jb1 15:13 XRAY Chest (1 view) In Process Unspecified. EDMS 15:15 Patient has correct armband on for positive identification. Bed in low position. Call aa5 light in reach. Side rails up X2. Adult w/ patient. threat monitoring analyst on. Pulse ox on. NIBP on. 15:20 Initial lab(s) drawn, by me, sent to lab. aa5 15:41 CT completed. Patient tolerated procedure well. Patient moved back from CT. mw3 15:44 CT Head Brain wo Cont In Process Unspecified. EDMS 18:15 No provider procedures requiring assistance completed. IV discontinued, intact, aa5 bleeding controlled, No redness/swelling at site. Pressure dressing applied. Administered Medications: 16:04 Drug: NS 0.9% 1000 ml Route: IV; Rate: 1000 ml; Site: left antecubital; aa5 17:25 Follow up: IV Status: Completed infusion; IV Intake: 1000ml aa5 16:30 Drug: Potassium Chloride 40 mEq Route: PO; aa5 17:30 Follow up: Response: No adverse reaction aa5 Intake: 17:25 IV: 1000ml; Total: 1000ml. aa5 Outcome: 17:48 Discharge ordered by . kb 18:15 Discharged to home via wheelchair, with significant other. aa5 18:15 Condition: improved 18:15 Discharge instructions given to patient, significant other, Instructed on discharge instructions, follow up and referral plans. Demonstrated understanding of instructions, follow-up care. 18:22 Patient left the ED. aa5 Signatures: Dispatcher [employer] EDMS Hugh Bell jb1 Yokasta Zambrano, CONTRACT SERVICEMAN-C CONTRACT SERVICEMAN-Ckb Flor Pham, RN RN iw Rut Saha RN RN aa5 Ebonie Hill RN RN jl7 Che Flores mw3 Corrections: (The following items were deleted from the chart) 15:05 14:57 Home Meds: citalopram 40 mg tab 1 tab once daily; iw 17:44 17:38 BP 148 / 78; Pulse 55bpm; Resp 15bpm; Pulse Ox 99%; jl7 aa5
--- NOTE | 2019-04-10 17:50 | EDPHYS ---
Physician Documentation [facility] Name: Taz Silverio Age: 78 yrs Sex: Male : 1940 Arrival Date: 04/10/2019 Time: 14:49 Bed 8 Private MD: SHANIQUA Physician Deejay Buckley HPI: 04/10 16:09 This 78 yrs old Male presents to ER via EMS with complaints of Dizziness, kb Fall Injury. 16:09 The patient has experienced syncope, collapsed. Onset: The symptoms/episode kb began/occurred just prior to arrival. Duration: This was a single episode. Context: the episode(s) was witnessed, by family, occurred at a prison or assisted living facility, occurred while the patient was standing, Just prior to the episode the patient experienced dizziness. Associated injury: Left upper extremity: anterior aspect of left shoulder, pain. Associated signs and symptoms: Pertinent positives: dizziness. Current symptoms: Currently, the patient is not experiencing any symptoms, the patient feels back to baseline, no decreased level of consciousness, no confusion, no dysphasia, no headache, no paralysis, no visual changes. The patient has not experienced similar symptoms in the past. The patient has not recently seen a physician. Pt reports he gets dizzy a lot and normally it is due to low blood pressure. States he takes medication for it. Was dizzy this morning so he had his BP checked and it was ok. 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 . Historical: - Allergies: 14:57 No Known Allergies; iw - Home Meds: 14:57 Advair Diskus 250-50 mcg/dose Inhl dsdv 1 puff 2 times per day [Active]; albuterol iw sulfate 1.25 mg/3 mL Inhl nebu 3 mL 3 times per day [Active]; alprazolam 0.5 mg Oral tab 1 tab twice a day [Active]; aspirin 81 mg Oral TbEC 1 tab once daily [Active]; Azilect 1 mg Oral tab 1 tab once daily [Active]; carbidopa-levodopa 25-100 mg Oral TbER 1 tab 4 times per day [Active]; fludrocortisone 0.1 mg Oral tab 1 tab once daily [Active]; mirtazapine 30 mg Oral TbDL 1 tab once daily [Active]; montelukast 10 mg Oral tab 1 tab once daily [Active]; omeprazole 20 mg Oral cpDR 1 cap once daily [Active]; pravastatin 40 mg Oral tab 1 tab once daily [Active]; tamsulosin 0.4 mg Oral cp24 1 cap once daily [Active]; Vitamin B-12 2,000 mcg Oral TbER [Active]; 15:05 citalopram 20 mg oral tab once daily [Active]; donepezil 5 mg oral TbDL 1 tab once iw daily [Active]; gabapentin 300 mg oral cap nightly [Active]; midodrine 5 mg oral tab 1 tabs 3 times per day [Active]; - PMHx: 14:57 Asthma; Dementia; Hyperlipidemia; Hypertension; Parkinsons; UTI; iw - PSHx: 14:57 TURP; iw - Immunization history:: Adult Immunizations up to date. - Social history:: Smoking status: Patient/guardian denies using tobacco. - Ebola Screening: : Patient negative for fever greater than or equal to 101.5 degrees Fahrenheit, and additional compatible Ebola Virus Disease symptoms Patient denies exposure to infectious person Patient denies travel to an Ebola-affected area in the 21 days before illness onset No symptoms or risks identified at this time. ROS: 15:57 Constitutional: Negative for fever, chills, and weight loss, ENT: Negative for injury, kb pain, and discharge, Neck: Negative for injury, pain, and swelling, Cardiovascular: Negative for chest pain, palpitations, and edema, Respiratory: Negative for shortness of breath, cough, wheezing, and pleuritic chest pain, Abdomen/GI: Negative for abdominal pain, nausea, vomiting, diarrhea, and constipation, Back: Negative for injury and pain, : Negative for injury, bleeding, discharge, and swelling, Skin: Negative for injury, rash, and discoloration. 15:57 MS/extremity: Positive for pain, of the anterior aspect of left shoulder. 15:57 Neuro: Positive for dizziness, syncope. Exam: 16:09 Constitutional: This is a well developed, well nourished patient who is awake, alert, kb and in no acute distress. Head/Face: Normocephalic, atraumatic. ENT: Nares patent. No nasal discharge, no septal abnormalities noted. Tympanic membranes are normal and external auditory canals are clear. Oropharynx with no redness, swelling, or masses, exudates, or evidence of obstruction, uvula midline. Mucous membranes moist. Neck: Trachea midline, no thyromegaly or masses palpated, and no cervical lymphadenopathy. Supple, full range of motion without nuchal rigidity, or vertebral point tenderness. No Meningismus. Chest/axilla: Normal chest wall appearance and motion. Nontender with no deformity. No lesions are appreciated. Cardiovascular: Regular rate and rhythm with a normal S1 and S2. No gallops, murmurs, or rubs. Normal PMI, no JVD. No pulse deficits. Respiratory: Lungs have equal breath sounds bilaterally, clear to auscultation and percussion. No rales, rhonchi or wheezes noted. No increased work of breathing, no retractions or nasal flaring. Abdomen/GI: Soft, non-tender, with normal bowel sounds. No distension or tympany. No guarding or rebound. No evidence of tenderness throughout. Back: No spinal tenderness. No costovertebral tenderness. Full range of motion. Skin: Warm, dry with normal turgor. Normal color with no rashes, no lesions, and no evidence of cellulitis. MS/ Extremity: Pulses equal, no cyanosis. Neurovascular intact. Full, normal range of motion. Neuro: Awake and alert, GCS 15, oriented to person, place, time, and situation. Cranial nerves II-XII grossly intact. Motor strength 5/5 in all extremities. Sensory grossly intact. Cerebellar exam normal. Normal gait. 17:38 ECG was reviewed by the Attending Physician. kb Vital Signs: 14:58 BP 174 / 86; Pulse 53; Resp 16 S; Pulse Ox 96% on R/A; Weight 82.55 kg; Height 5 ft. 11 iw in. (180.34 cm); Pain 0/10; 15:25 BP 180 / 88 Supine; Pulse 56; aa5 15:25 Temp 98.0(TE); aa5 15:27 BP 167 / 83 Sitting; Pulse 57; aa5 15:29 BP 85 / 54 Standing; Pulse 63; aa5 16:30 BP 140 / 76; Pulse 53; Resp 16 S; Temp 98.1(O); Pulse Ox 99% on R/A; Pain 0/10; aa5 17:30 aa5 17:36 BP 163 / 83 Supine; Pulse 55; aa5 17:38 BP 148 / 78 Sitting; Pulse 55; Resp 15; Pulse Ox 99% ; aa5 17:40 BP 115 / 64 Standing; Pulse 60; aa5 18:10 BP 164 / 79; Pulse 58; Resp 18 S; Temp 98.0(TE); Pulse Ox 96% ; aa5 14:58 Body Mass Index 25.38 (82.55 kg, 180.34 cm) iw 15:29 Pt c/o dizziness when standing. [facility] notified of orthostatics. aa5 17:30 HR fluctuating between 47bpm and 52bpm, [facility] was notified. aa5 17:40 [facility] notified of orhostatic VS. Pt reports dizziness has improved while standing, pt aa5 states "I only feel a little dizzy when I stand now" MDM: 14:59 Patient medically screened. 15:41 Data reviewed: vital signs, nurses notes. Data interpreted: Pulse oximetry: on room air kb is 96 %. Interpretation: normal. 17:36 Counseling: I had a detailed discussion with the patient and/or guardian regarding: the historical points, exam findings, and any diagnostic results supporting the discharge/admit diagnosis, lab results, radiology results, the need for outpatient follow up, a family practitioner, to return to the emergency department if symptoms worsen or persist or if there are any questions or concerns that arise at home. ED course: Reviewed noted from admission in October 2018. Pt has a history of bradycardia, was seen by Александр while admitted. Documented that pt's heart rate drops into the 30s while sleeping, but there is no indication for pacemaker. Discussed this with pt. HR at this time is 58, has dropped to 48 during this visit but this is apparently normal for pt. Will repeat orthostatics and discharge pt back to [facility] and to follow up with Dr Williamson. 17:39 Data reviewed: I have discussed the patient's presentation/case with the attending Emergency Department Physician;. 04/10 15:00 Order name: Basic Metabolic Panel; Complete Time: 16:12 kb 04/10 15:00 Order name: CBC with Diff; Complete Time: 15:39 kb 04/10 15:00 Order name: LFT's; Complete Time: 16:12 kb 04/10 15:00 Order name: Magnesium; Complete Time: 16:12 kb 04/10 15:00 Order name: NT PRO-BNP; Complete Time: 16:12 kb 08 15:00 Order name: PT-INR; Complete Time: 15:39 kb 04/10 15:00 Order name: Troponin (emerg Dept Use Only); Complete Time: 16:12 kb 08 15:00 Order name: XRAY Chest (1 view); Complete Time: 15:33 kb 08 15:00 Order name: EKG; Complete Time: 15:04 kb 04/10 15:00 Order name: Cardiac monitoring; Complete Time: 15:11 kb 04/10 15:00 Order name: EKG - Nurse/Tech; Complete Time: 15:09 kb 08 15:21 Order name: CT Head Brain wo Cont; Complete Time: 15:51 kb 04/10 15:00 Order name: IV Saline Lock; Complete Time: 15:21 kb 04/10 15:00 Order name: Labs collected and sent; Complete Time: 15:21 kb 08 15:00 Order name: O2 Per Protocol; Complete Time: 15:11 kb 04/10 15:00 Order name: O2 Sat Monitoring; Complete Time: 15:11 kb 04/10 15:00 Order name: Orthostatics; Complete Time: 15:36 kb EC:38 Rate is 53 beats/min. Rhythm is regular. QRS [place] is Normal. [place] interval is normal at kb 202 msec. QRS interval is normal at 88 msec. QT interval is normal at 462 msec. Administered Medications: 16:04 Drug: NS 0.9% 1000 ml Route: IV; Rate: 1000 ml; Site: left antecubital; aa5 17:25 Follow up: IV Status: Completed infusion; IV Intake: 1000ml aa5 16:30 Drug: Potassium Chloride 40 mEq Route: PO; aa5 17:30 Follow up: Response: No adverse reaction aa5 Disposition: 04/10/19 17:48 Discharged to Home. Impression: Syncope and collapse, Hypokalemia. - Condition is Stable. - Discharge Instructions: Potassium Content of Foods, Syncope, [id number], Hypokalemia. - Medication Reconciliation Form, Thank You Letter, Antibiotic Education, Prescription Opioid Use form. - Follow up: Emergency Department; When: As needed; Reason: Worsening of condition. Follow up: Private Physician; When: 2 - 3 days; Reason: Recheck today's complaints, Continuance of care, Re-evaluation by your physician. Addendum: 04/12/2019 09:58 Co-signature as Attending Physician, Deejay Buckley MD I agree with the assessment and c garcia plan of care. Signatures: Dispatcher [employer] EDMS Yokasta Zambrano, [employer]MENT[employer] TEACHER-C [employer] TEACHER-CkDeejay Dorsey MD MD cha Williams, Irene, RN RN Rut Saha RN RN aa5 Corrections: (The following items were deleted from the chart) 04/10 15:05 14:57 Home Meds: citalopram 40 mg tab 1 tab once daily; [facility] 17:51 15:00 Urine Dipstick-Ancillary ordered. kb aa5 18:22 17:48 04/10/2019 17:48 Discharged to Home. Impression: Syncope and collapse; aa5 Hypokalemia. Condition is Stable. Forms are Medication Reconciliation Form, Thank You Letter, Antibiotic Education, Prescription Opioid Use. Follow up: Emergency Department; When: As needed; Reason: Worsening of condition. Follow up: Private Physician; When: 2 - 3 days; Reason: Recheck today's complaints, Continuance of care, Re-evaluation by your physician. kb
[2019-04-10 18:37] VITALS: BP 164/79; TEMP 98; O2SAT 96
--- NOTE | 2019-04-11 10:24 | EKG ---
Test Date: 2019-04-10 Test Time: 15:00:07 Friction Paint Machine Tender: JAMES MEASUREMENT RESULTS: Intervals: Rate: 53 GA: 202 QRSD: 88 QT: 462 QTc: 433 [place]: P: 52 GA: 202 QRS: 8 T: 41 INTERPRETIVE STATEMENTS: Sinus bradycardia Otherwise normal ECG Compared to ECG 11/21/2018 06:34:47 No significant changes Electronically Signed On 04-11-19 10:23:05 CDT by Chidi Fountain
== END 2019-04-10 18:22 | disposition home or self-care (01) ==
LOC: ER 14:39
DX: E87.6 Hypokalemia (principal); I10 Essential (primary) hypertension; G20 Parkinson's disease; F02.80 Dementia in other diseases classified elsewhere, unspecified severity, without behavioral disturbance, psychotic disturbance, mood disturbance, and anxiety; E78.5 Hyperlipidemia, unspecified; J45.909 Unspecified asthma, uncomplicated; Z79.82 Long term (current) use of aspirin; W19.XXXA Unspecified fall, initial encounter; Y93.9 Activity, unspecified; Y92.129 Unspecified place in nursing home as the place of occurrence of the external cause
CPT/HCPCS: 93005; 85025; 80048; 36415; 83735; 85610; 80076; 84484; 83880; 70450; 71045; 96360; 99285; J7030

== ENCOUNTER 2019-12-04 05:13 | Emergency (ER) | payer OTHER ==
--- NOTE | 2019-12-04 05:27 | EDPHYS ---
Physician Documentation [facility] Name: Taz Silverio Age: 79 yrs Sex: Male : 1940 Arrival Date: 12/04/2019 Time: 05:14 Bed 8 Private MD: ED Physician Deejay Buckley HPI: 12/03 05:22 This 79 yrs old Male presents to ER via EMS with complaints of Fall Injury. alayna 05:22 Details of fall: The patient fell from a height. Onset: The symptoms/episode alayna began/occurred just prior to arrival. Associated injuries: The patient sustained no obvious injury, injury to the head. Severity of symptoms: At their worst the symptoms were very mild, in the emergency department the symptoms have resolved. It is unknown whether or not the patient has had similar symptoms in the past. Historical: - Allergies: 05:15 No Known Allergies; rr5 - Home Meds: 05:15 Advair Diskus 250-50 mcg/dose Inhl dsdv 1 puff 2 times per day [Active]; albuterol rr5 sulfate 1.25 mg/3 mL Inhl nebu 3 mL 3 times per day [Active]; alprazolam 0.5 mg Oral tab 1 tab twice a day [Active]; aspirin 81 mg Oral TbEC 1 tab once daily [Active]; Azilect 1 mg Oral tab 1 tab once daily [Active]; citalopram 20 mg tab once daily [Active]; carbidopa-levodopa 25-100 mg Oral TbER 1 tab 4 times per day [Active]; donepezil 5 mg Oral TbDL 1 tab once daily [Active]; fludrocortisone 0.1 mg Oral tab 1 tab once daily [Active]; gabapentin 300 mg Oral cap nightly [Active]; midodrine 5 mg Oral tab 1 tabs 3 times per day [Active]; mirtazapine 30 mg Oral TbDL 1 tab once daily [Active]; montelukast 10 mg Oral tab 1 tab once daily [Active]; omeprazole 20 mg Oral cpDR 1 cap once daily [Active]; pravastatin 40 mg Oral tab 1 tab once daily [Active]; tamsulosin 0.4 mg Oral cp24 1 cap once daily [Active]; Vitamin B-12 2,000 mcg Oral TbER [Active]; - PMHx: 05:15 Asthma; Dementia; Hyperlipidemia; Hypertension; Parkinsons; UTI; rr5 - Immunization history:: Adult Immunizations unknown. - Social history:: Smoking status: unknown. - Immunization history: Last tetanus immunization: unknown. - Family history:: not pertinent. ROS: 05:24 Constitutional: Negative for fever, chills, and weight loss, Eyes: Negative for injury, alayna pain, redness, and discharge, ENT: Negative for injury, pain, and discharge, Neck: Negative for injury, pain, and swelling, Cardiovascular: Negative for chest pain, palpitations, and edema, Respiratory: Negative for shortness of breath, cough, wheezing, and pleuritic chest pain, Abdomen/GI: Negative for abdominal pain, nausea, vomiting, diarrhea, and constipation, Back: Negative for injury and pain, : Negative for injury, bleeding, discharge, and swelling, MS/Extremity: Negative for injury and deformity, Skin: Negative for injury, rash, and discoloration, Psych: Negative for depression, anxiety, suicide ideation, homicidal ideation, and hallucinations, Allergy/Immunology: Negative for hives, rash, and allergies, Endocrine: Negative for neck swelling, polydipsia, polyuria, polyphagia, and marked weight changes, Hematologic/Lymphatic: Negative for swollen nodes, abnormal bleeding, and unusual bruising. 05:24 Neuro: Positive for dementia. Exam: 05:24 Constitutional: This is a well developed, well nourished patient who is awake, alert, alayna and in no acute distress. Head/Face: Normocephalic, atraumatic. Eyes: Pupils equal round and reactive to light, extra-ocular motions intact. Lids and lashes normal. Conjunctiva and sclera are non-icteric and not injected. Cornea within normal limits. Periorbital areas with no swelling, redness, or edema. ENT: Nares patent. No nasal discharge, no septal abnormalities noted. Tympanic membranes are normal and external auditory canals are clear. Oropharynx with no redness, swelling, or masses, exudates, or evidence of obstruction, uvula midline. Mucous membranes moist. Neck: Trachea midline, no thyromegaly or masses palpated, and no cervical lymphadenopathy. Supple, full range of motion without nuchal rigidity, or vertebral point tenderness. No Meningismus. Chest/axilla: Normal chest wall appearance and motion. Nontender with no deformity. No lesions are appreciated. Cardiovascular: Regular rate and rhythm with a normal S1 and S2. No gallops, murmurs, or rubs. Normal PMI, no JVD. No pulse deficits. Respiratory: Lungs have equal breath sounds bilaterally, clear to auscultation and percussion. No rales, rhonchi or wheezes noted. No increased work of breathing, no retractions or nasal flaring. Abdomen/GI: Soft, non-tender, with normal bowel sounds. No distension or tympany. No guarding or rebound. No evidence of tenderness throughout. Back: No spinal tenderness. No costovertebral tenderness. Full range of motion. Male : Normal genitalia with no discharge or lesions. Skin: Warm, dry with normal turgor. Normal color with no rashes, no lesions, and no evidence of cellulitis. MS/ Extremity: Pulses equal, no cyanosis. Neurovascular intact. Full, normal range of motion. Psych: Awake, alert, with orientation to person, place and time. Behavior, mood, and affect are within normal limits. 05:24 Neuro: Orientation: Not oriented to place, time, situation, Mentation: no acute changes, Memory: unable to test, Cranial nerves: is grossly normal based on the patient's age, no acute changes, Cerebellar function: unable to test, Motor: moves all fours, Sensation: no obvious gross deficits, Gait: not tested. Deep tendon reflexes are 2+ (normal) in the bilateral brachioradialis, bicep, tricep and patellar and Achilles tendons, seizure activity, is not displayed by the patient. Vital Signs: 05:15 BP 126 / 65; Pulse 50; Resp 16; Temp 97.7; Pulse Ox 97% ; Weight 68.04 kg; rr5 05:28 BP 121 / 85; Pulse 51; Resp 17; Pulse Ox 99% ; rr5 Mandan Coma Score: 05:15 Eye Response: spontaneous(4). Verbal Response: oriented(5). Motor Response: obeys rr5 commands(6). Modifying Factors: Phys. Deformity. Total: 15. 05:15 dementia rr5 Trauma Score (Adult): 05:15 Eye Response: spontaneous(1); Verbal Response: oriented(1); Motor Response: obeys rr5 commands(2); Systolic BP: > 89 mm Hg(4); Respiratory Rate: 10 to 29 per min(4); Carola Score: 15; Trauma Score: 12; episodes of confusion history of dementia. [facility]: 05:16 Patient medically screened. [facility] 05:26 Data reviewed: vital signs, nurses notes. [facility] Administered Medications: No medications were administered Disposition: 12/04/19 05:27 Discharged to Home. Impression: Fall from other furniture - bed. - Condition is Stable. - Discharge Instructions: Dementia, Head Injury, Adult, Fall Prevention in the Home, Fall Prevention in the Home, [id number], Head Injury, Adult, [id number], Dementia, [id number]. - Medication Reconciliation Form, Thank You Letter, Antibiotic Education, Prescription Opioid Use form. - Follow up: Private Physician; When: As needed; Reason: Recheck today's complaints, Continuance of care, Re-evaluation by your physician. - Problem is new. - Symptoms have improved. Signatures: Amilcar Garcia RN RN Deejay Paniagua MD MD cha Roque, Raymond RN RN rr5 Corrections: (The following items were deleted from the chart) 05:37 05:27 12/04/2019 05:27 Discharged to Home. Impression: Fall from other furniture - bed. sg Condition is Stable. Forms are Medication Reconciliation Form, Thank You Letter, Antibiotic Education, Prescription Opioid Use. Follow up: Private Physician; When: As needed; Reason: Recheck today's complaints, Continuance of care, Re-evaluation by your physician. Problem is new. Symptoms have improved. [facility]
--- NOTE | 2019-12-04 05:27 | ER ---
Nurse's Notes [facility] Name: Taz Silverio Age: 79 yrs Sex: Male : 1940 Arrival Date: 12/04/2019 Time: 05:14 Bed 8 Private MD: Diagnosis: Fall from other furniture-bed Presentation: 12/03 05:15 Chief complaint: EMS states: patient fell down from the bed roll down on the pads, hit rr5 his head. the staff from counts include 234 beds at the [facility] said redness on the forehead area noted. denies LOC no blood thinners. Coronavirus screen: Patient denies fever greater than 100.4F, cough, shortness of breath, or difficulty breathing. Proceed with normal triage process. Ebola Screen: Unable to complete the Ebola screening because: The patient is disoriented. Initial Sepsis Screen: Does the patient meet any 2 criteria? No. Patient's initial sepsis screen is negative. Does the patient have a suspected source of infection? No. Patient's initial sepsis screen is negative. Risk Assessment: Do you want to hurt yourself or someone else? Patient reports no desire to harm self or others. Onset of symptoms was December 04, 2019. 05:15 Method Of Arrival: EMS: [facility] rr5 05:15 Acuity: SUKHJINDER 3 rr5 05:15 Transition of care: patient was received from another setting of care ([facility]term care [facility] counts include 234 beds at the [facility]. 05:15 Care prior to arrival: None. Mechanism of Injury: Fall out of bed. rr5 05:15 Trauma event details: Injury occurred in the [facility], Injury occurred: [address] Injury occurred: December 04, 2019. Triage Assessment: 05:15 General: Appears in no apparent distress. comfortable, Behavior is calm, cooperative. rr5 Trauma Activation: Not Applicable Physician: ED Physician; Name: ; Notified At: ; Arrived At: Physician: General Surgeon; Name: ; Notified At: ; Arrived At: Physician: Radiology; Name: ; Notified At: ; Arrived At: Physician: Respiratory; Name: ; Notified At: ; Arrived At: Physician: Lab; Name: ; Notified At: ; Arrived At: Historical: - Allergies: 05:15 No Known Allergies; rr5 - Home Meds: 05:15 Advair Diskus 250-50 mcg/dose Inhl dsdv 1 puff 2 times per day [Active]; albuterol rr5 sulfate 1.25 mg/3 mL Inhl nebu 3 mL 3 times per day [Active]; alprazolam 0.5 mg Oral tab 1 tab twice a day [Active]; aspirin 81 mg Oral TbEC 1 tab once daily [Active]; Azilect 1 mg Oral tab 1 tab once daily [Active]; citalopram 20 mg tab once daily [Active]; carbidopa-levodopa 25-100 mg Oral TbER 1 tab 4 times per day [Active]; donepezil 5 mg Oral TbDL 1 tab once daily [Active]; fludrocortisone 0.1 mg Oral tab 1 tab once daily [Active]; gabapentin 300 mg Oral cap nightly [Active]; midodrine 5 mg Oral tab 1 tabs 3 times per day [Active]; mirtazapine 30 mg Oral TbDL 1 tab once daily [Active]; montelukast 10 mg Oral tab 1 tab once daily [Active]; omeprazole 20 mg Oral cpDR 1 cap once daily [Active]; pravastatin 40 mg Oral tab 1 tab once daily [Active]; tamsulosin 0.4 mg Oral cp24 1 cap once daily [Active]; Vitamin B-12 2,000 mcg Oral TbER [Active]; - PMHx: 05:15 Asthma; Dementia; Hyperlipidemia; Hypertension; Parkinsons; UTI; rr5 - Immunization history:: Adult Immunizations unknown. - Social history:: Smoking status: unknown. - Immunization history: Last tetanus immunization: unknown. - Family history:: not pertinent. Screenin:15 Abuse screen: Denies threats or abuse. Denies injuries from another. Nutritional rr5 screening: No deficits noted. Tuberculosis screening: No symptoms or risk factors identified. Fall Risk Secondary diagnosis (15 points) dementia, impaired mobility, Gait- Impaired (20 pts.). Total [place] Fall Scale indicates High Risk Score (45 or more points). Fall prevention measures have been instituted. Side Rails Up X 2 Frequent Obs/Assessments Occuring As available patient and family educated on Fall Prevention Program and Strategies. Primary Survey: 05:15 NO uncontrolled hemorrhage observed. rr5 05:15 A: The patient is alert. Airway: patent, No supplemental oxygen in use on arrival. Oral rr5 cavity: clear, gag reflex present, Trachea midline. Breathing/Chest: Respiratory pattern: regular, Respiratory effort: spontaneous, unlabored, Breath sounds: clear, bilaterally. Chest inspection: symmetrical rise and fall of the chest. Circulation: Heart tones present. Pulses: palpable right radial artery, right dorsalis pedis artery, left radial artery and left dorsalis pedis artery. Disability Alert. Exposure/Environment: There is no evidence of uncontrolled external bleeding. No obvious injuries are noted at this time. A warming method has been applied: A warm blanket has been provided to the patient. 05:35 Reassessment Airway Airway Patent Breathing/Chest Respiratory pattern Regular rr5 Respiratory effort Spontaneous Unlabored Circulation Heart tones Present Pulses Palpable Disability Alert. Secondary Survey: 05:15 HEENT: No deficits noted. Head No injury/deformity Face No injury/deformity Eyes: No rr5 injury or deformity noted. to bilateral eyes. Ears: clear bilaterally. Nose: clear to bilateral nares. Throat: No injury or deformity noted. is clear with gag reflex present. Gastrointestinal: Abdomen is flat. : No signs and/or symptoms were reported regarding the genitourinary system. Musculoskeletal: Capillary refill < 3 seconds. Assessment: 05:15 General: Appears in no apparent distress. comfortable, Behavior is calm. Pain: Denies rr5 pain. Neuro: Level of Consciousness is awake, alert, obeys commands, Oriented to person, place, Facial symmetry appears normal, Pupils are PERRLA. Cardiovascular: Capillary refill < 3 seconds Patient's skin is warm and dry. Respiratory: Airway is patent Respiratory effort is even, unlabored, Respiratory pattern is regular, symmetrical, Breath sounds are clear bilaterally. GI: No signs and/or symptoms were reported involving the gastrointestinal system. : No signs and/or symptoms were reported regarding the genitourinary system. EENT: No signs and/or symptoms were reported regarding the EENT system. Derm: Skin is fragile, is thin, Skin temperature is warm. Musculoskeletal: Capillary refill < 3 seconds. 05:29 Reassessment: Patient appears in no apparent distress at this time. [facility] staff sg called, verified situation for patient, instructed that the pt is now up for dc to [place]. ordnance engineering technician Taz reports that there are currently no nurses in the facility at this time for pt report, he felt that the pt was to be admitted to hospice from this ER. 05:39 Reassessment: Patient appears in no apparent distress at this time. discharge rr5 instruction given to EMS without complaints made. Vital Signs: 05:15 BP 126 / 65; Pulse 50; Resp 16; Temp 97.7; Pulse Ox 97% ; Weight 68.04 kg; rr5 05:28 BP 121 / 85; Pulse 51; Resp 17; Pulse Ox 99% ; rr5 [place] Coma Score: 05:15 Eye Response: spontaneous(4). Verbal Response: oriented(5). Motor Response: obeys rr5 commands(6). Modifying Factors: Phys. Deformity. Total: 15. 05:15 dementia rr5 Trauma Score (Adult): 05:15 Eye Response: spontaneous(1); Verbal Response: oriented(1); Motor Response: obeys rr5 commands(2); Systolic BP: > 89 mm Hg(4); Respiratory Rate: 10 to 29 per min(4); Carola Score: 15; Trauma Score: 12; episodes of confusion history of dementia. ED Course: 05:14 Patient arrived in ED. ds1 05:15 Christian Olivier, DORON is Primary Nurse. rr5 05:15 Arm band placed on right wrist. rr5 05:15 Patient has correct armband on for positive identification. Bed in low position. Call rr5 light in reach. Side rails up X2. Pulse ox on. NIBP on. 05:16 Deejay Buckley MD is Attending Physician. alayna 05:16 Patient maintains SpO2 saturation greater than 95% on room air. rr5 05:17 Thermoregulation: warm blanket given to patient. rr5 05:20 Triage completed. rr5 05:25 No provider procedures requiring assistance completed. Patient did not have IV access rr5 during this emergency room visit. Administered Medications: No medications were administered Intake: 05:35 PO: 0ml; Total: 0ml. rr5 Outcome: 05:27 Discharge ordered by . alayna 05:35 Discharged to counts include 234 beds at the [facility] rr5 05:35 Condition: stable rr5 05:35 Discharge instructions given to EMS, Instructed on discharge instructions, follow up and referral plans. Demonstrated understanding of instructions, follow-up care. 05:35 Patient's length of stay was not longer than 2 hours. rr5 05:37 Patient left the ED. sg Signatures: Amilcar Garcia RN Deejay Richards MD MD cha Sanford, Demi ds1 Christian Olivier, DORON RN rr5
[2019-12-04 05:46] VITALS: BP 126/65; TEMP 97.7; O2SAT 97
== END 2019-12-04 05:37 | disposition home or self-care (01) ==
LOC: ER 05:13
DX: S09.90XA Unspecified injury of head, initial encounter (principal); W06.XXXA Fall from bed, initial encounter; Y93.9 Activity, unspecified; Y92.122 Bedroom in nursing home as the place of occurrence of the external cause; J45.909 Unspecified asthma, uncomplicated; E78.5 Hyperlipidemia, unspecified; I10 Essential (primary) hypertension; G20 Parkinson's disease; F02.80 Dementia in other diseases classified elsewhere, unspecified severity, without behavioral disturbance, psychotic disturbance, mood disturbance, and anxiety
CPT/HCPCS: 99284